=== PATIENT | female | born 1960 | race Caucasian/White ===

== ENCOUNTER 2018-12-01 09:34 | Inpatient (IN) ==
--- NOTE | 2018-12-01 09:50 | ED EKG INTERP ---
EKG Interpretation - EKG Time of EKG reading by physician:: 09:49 EKG Read and Signed by:: Yung Carter EKG Interpretation (*Must complete 3 of following elements*): Abnormal Rate: 126 Rhythm: sinus tach [place]: normal QRS: poor R wave progression, LVH GA Interval: shortened ST Wave: non-specific ST changes Prior EKG Comparison: unchanged from prior (04/01/18, except rate increased) Attestation - Physician/ HARRIETT Attestation Patient care was provided by Advanced Practice Provider:: Yes Advanced Practice Provider:: [place] Advanced Practice Provider documentation review:: The Mid-level provider documentation, treatment plan and medical decision making was reviewed by the physician who agrees with all treatment and medical decision making by the MLP. The physician spent face to face time with patient:: No Advanced Practice Provider documentation review:: Supervising physician onsite and consulted in the evaluation and care of this patient. The physician did not have a face to face encounter with the patient.
[2018-12-01] MEDS ORDERED: NS 1,000 ML IV ONE ×3 (09:55→13:42)
[2018-12-01] MEDS ORDERED: DUONEB (A & A) INH ONE (09:58)
--- NOTE | 2018-12-01 10:06 | PROVIDER DOCUMENTATION ---
HPI-Cardiac General - General Chief Complaint: Palpitations Stated Complaint: HIGH PULSE RATE,COPD,COUGHING Time Seen by Provider: 12/01/18 09:38 Source: patient Allergies/Adverse Reactions: Patient Allergies Allergy/AdvReac Type Severity Reaction Status Date / Time No Known Allergies Allergy Verified 12/01/18 10:21 Home Medications: Home Medication List Medication Instructions Recorded Confirmed Last Taken Type Atorvastatin Calcium 80 mg PO DAILY 04/22/16 12/01/18 03/31/18 History Lisinopril 5 mg PO DAILY 04/22/16 12/01/18 03/31/18 History Pantoprazole [Protonix] 40 mg PO DAILY 04/22/16 12/01/18 03/31/18 History Albuterol 2.5MG/Ipratrop 0.5MG 3 ml INH [id number] #120 neb 04/07/18 12/01/18 Unknown Rx [Duoneb (A & A)] Albuterol Sulfate [Proair Hfa] 1 inh INH Q4-6H PRN PRN 12/01/18 12/01/18 Unknown History Aspirin [Aspirin EC] 1 tab PO DAILY 12/01/18 12/01/18 Unknown History Fluticasone/Umeclidin/Vilanter 1 inh INH DAILY 12/01/18 12/01/18 Unknown History [Treledia Ellipta 100-62.5-25] Gabapentin 1 cap PO QHS 12/01/18 12/01/18 Unknown History Guaifenesin [Mucinex] 1 tab PO BID 12/01/18 12/01/18 Unknown History Metformin HCl [Metformin HCl ER] 1 tab PO DAILY 12/01/18 12/01/18 Unknown History Metoprolol Succinate E.r. [Toprol 1 tab PO DAILY 12/01/18 12/01/18 Unknown History Xl] Pentoxifylline E.r. [Trental] 1 tab PO TID 12/01/18 12/01/18 Unknown History Risedronate [Actonel] 1 tab PO DIRECTED 12/01/18 12/01/18 Unknown History - History of Present Illness-Cardiac Nature of Presenting Problem: Pt is 58 yo female, states heart has been racing on/off x 5 days, has been up to 170 on her O2 sat monitor at home, generalized weakness, increased dyspnea. Pt has h/o CABG and COPD, states she usually wears O2 at home only prn, but over the past week she has been on it constant. Also, reports coughing up blood tinged sputum as well. Denies chest pain. States she had appt with Dr. Marks this morning but didn't think she could make it. Onset/Duration: 5 days ago Timing: still present, intermittent, getting worse Palpitation Quality: fast/pounding heart beat History of arrythmia: reports: none Prior Chest Pain/Cardiac Workup: denies: angina Associated Symptoms: reports: fatigue, shortness of breath. denies: edema, fever/chills, nausea, vomiting Review of Systems - Adult - REVIEW OF SYSTEMS - ADULT Constitutional: denies: chills, fever Cardiovascular: reports: palpitations. denies: chest pain, edema Respiratory: reports: chronic cough, hemoptysis, shortness of breath. denies: wheezing Gastrointestinal: denies: nausea, vomiting Integumentary: denies: rash All Other Systems: Reviewed and Negative Past History - Adult - PAST MEDICAL HISTORY-ADULT Review of Records: reports: Old Records Reviewed, Nursing Assessment Review, Medications Reviewed, Social history reviewed & non-contributory. Major Childhood Illnesses: reports: denies history Cardiovascular: reports: HTN, [place] Respiratory: reports: COPD Other Conditions: reports: blindness (right eye) - PRIOR SURGERIES/PROCEDURES Surgical/Procedure History: reports: appendectomy, CABG, hysterectomy, tonsillectomy - IMMUNIZATION STATUS Childhood Immunizations: See Nurse Assessment Flu Vaccine: See Nurse Assessment - FAMILY HISTORY Family History: reviewed, not pertinent Physical Exam-General - PHYSICAL EXAM-ADULT Initial Vital Signs Reviewed: Yes (tachycardia) - CONSTITUTIONAL General Appearance: alert, no apparent distress, cachetic - EYES Eyes: PERRL/EOMI, pink conjunctivae - HEAD, EARS, NOSE, MOUTH & THROAT HENMT: normocephalic/atraumatic, moist mucous membranes - NECK Neck: supple - RESPIRATORY Respiratory: lungs clear, no pleuratic chest pain, respiratory distress (mild), decreased breath sounds (bilat) - CARDIOVASCULAR Cardiovascular: no edema, no gallop, no murmur, tachycardia - SKIN Integumentary: normal color, warm/dry - NEUROLOGIC Neurologic: grossly normal, no motor/sensory deficits - PSYCHIATRIC Psych/Mental Status: normal mood/affect, normal thought content, normal thought process, oriented x 3 Progress - PLAN OF CARE/RESULTS Progress/Plan/Lab Results: Vital Signs - 8 hr 12/01/18 09:45 12/01/18 09:53 12/01/18 10:01 Temperature 98.1 F Pulse Rate 135 H 126 H 122 H Respiratory Rate 20 33 H 35 H Blood Pressure 116/73 97/80 110/79 O2 Sat by Pulse Oximetry 94 L 97 12/01/18 10:10 12/01/18 10:20 12/01/18 10:31 Temperature Pulse Rate 114 H 112 H 114 H Respiratory Rate 37 H 30 H 40 H Blood Pressure 99/73 O2 Sat by Pulse Oximetry 90 L 96 96 12/01/18 10:55 Temperature Pulse Rate 105 H Respiratory Rate 20 Blood Pressure O2 Sat by Pulse Oximetry 94 L Laboratory Results - last 24 hr 12/01/18 12/01/18 12/01/18 10:10 10:10 10:10 WBC 19.27 H RBC 4.61 Hgb 14.0 Hct 41.2 MCV 89.4 MCH 30.4 MCHC 34.0 RDW Std Deviation 15.5 H Plt Count 489 H MPV 8.5 Immature Gran % (Auto) 0.3 Neut % (Auto) 89.8 H Lymph % (Auto) 4.6 L Lyman % (Auto) 5.1 Eos % (Auto) 0.0 Baso % (Auto) 0.2 Immature Gran # (Auto) 0.06 H Neut # (Auto) 17.31 H Lymph # (Auto) 0.88 L Lyman # (Auto) 0.99 H Eos # (Auto) 0.00 Baso # (Auto) 0.03 PT INR PTT (Actin FS) Specimen Type Sample Site pH pCO2 pO2 HCO3 Base Excess Oxyhemoglobin ABG O2 Sat (Calculated) ABG O2 Saturation ABG Carboxyhemoglobin ABG Methemoglobin Danielito Test A-a O2 Difference Total Hemoglobin Lactate Blood Gas Modality FiO2 % Sodium 132 L Potassium 4.1 Chloride 88 L Carbon Dioxide 25 Anion Gap 19 BUN 11 Creatinine 0.5 Estimated GFR/1.73 m2 > 60 BUN/Creatinine Ratio 22 Glucose 90 Calculated Osmolality 263 Calcium 9.6 Total Bilirubin 0.82 AST 58 H ALT 79 H Alkaline Phosphatase 184 H Creatine Kinase Troponin T Rju-[id number]-Zgcukshojtj Pept Total Protein 7.7 Albumin 3.2 L Globulin 4.5 Albumin/Globulin Ratio 0.7 TSH 1.18 Urine Source Urine Color Urine Turbidity Urine pH Ur Specific Upperco Urine Protein Ur Glucose (Stick) Ur Ketones (Stick) Urine Blood Urine Nitrite Urine Bilirubin Urobilinogen Dipstick Urine Leukocytes Urine WBC (Auto) Urine RBC (Auto) U Epithel Cells (Auto) Urine Bacteria (Auto) Urine Crystals Small Round Cells Urine Casts Urine Yeast-like Cells 12/01/18 12/01/18 12/01/18 10:10 10:10 10:10 WBC RBC Hgb Hct MCV MCH MCHC RDW Std Deviation Plt Count MPV Immature Gran % (Auto) Neut % (Auto) Lymph % (Auto) Lyman % (Auto) Eos % (Auto) Baso % (Auto) Immature Gran # (Auto) Neut # (Auto) Lymph # (Auto) Lyman # (Auto) Eos # (Auto) Baso # (Auto) PT 13.4 INR 0.95 PTT (Actin FS) 35.0 Specimen Type Sample Site pH pCO2 pO2 HCO3 Base Excess Oxyhemoglobin ABG O2 Sat (Calculated) ABG O2 Saturation ABG Carboxyhemoglobin ABG Methemoglobin Danielito Test A-a O2 Difference Total Hemoglobin Lactate Blood Gas Modality FiO2 % Sodium Potassium Chloride Carbon Dioxide Anion Gap BUN Creatinine Estimated GFR/1.73 m2 BUN/Creatinine Ratio Glucose Calculated Osmolality Calcium Total Bilirubin AST ALT Alkaline Phosphatase Creatine Kinase 26 Troponin T Zfl-F-Zxrljltlurd Pept 960 H Total Protein Albumin Globulin Albumin/Globulin Ratio TSH Urine Source Urine Color Urine Turbidity Urine pH Ur Specific Upperco Urine Protein Ur Glucose (Stick) Ur Ketones (Stick) Urine Blood Urine Nitrite Urine Bilirubin Urobilinogen Dipstick Urine Leukocytes Urine WBC (Auto) Urine RBC (Auto) U Epithel Cells (Auto) Urine Bacteria (Auto) Urine Crystals Small Round Cells Urine Casts Urine Yeast-like Cells 12/01/18 12/01/18 12/01/18 10:10 11:23 13:15 WBC RBC Hgb Hct MCV MCH MCHC RDW Std Deviation Plt Count MPV Immature Gran % (Auto) Neut % (Auto) Lymph % (Auto) Lyman % (Auto) Eos % (Auto) Baso % (Auto) Immature Gran # (Auto) Neut # (Auto) Lymph # (Auto) Lyman # (Auto) Eos # (Auto) Baso # (Auto) PT INR PTT (Actin FS) Specimen Type ARTERIAL Sample Site R RADIAL pH 7.45 pCO2 36 pO2 73 HCO3 25.7 Base Excess 1.3 Oxyhemoglobin 90.1 L ABG O2 Sat (Calculated) 17.3 ABG O2 Saturation 96.5 ABG Carboxyhemoglobin 5.60 H* ABG Methemoglobin 1.0 Danielito Test YES A-a O2 Difference 32.0 Total Hemoglobin 13.6 Lactate 1.10 Blood Gas Modality ROOM AIR FiO2 % 21.0 Sodium Potassium Chloride Carbon Dioxide Anion Gap BUN Creatinine Estimated GFR/1.73 m2 BUN/Creatinine Ratio Glucose Calculated Osmolality Calcium Total Bilirubin AST ALT Alkaline Phosphatase Creatine Kinase Troponin T < 0.010 Dup-D-Fhytojefjgc Pept Total Protein Albumin Globulin Albumin/Globulin Ratio TSH Urine Source CLEAN CATCH Urine Color ORANGE Urine Turbidity TURBID Urine pH 6.0 Ur Specific [place] 1.012 Urine Protein 30 A Ur Glucose (Stick) NEGATIVE Ur Ketones (Stick) 60 A Urine Blood SMALL A Urine Nitrite POSITIVE A Urine Bilirubin NEGATIVE Urobilinogen Dipstick NORMAL Urine Leukocytes LARGE A Urine WBC (Auto) TNTC A Urine RBC (Auto) <10 U Epithel Cells (Auto) <10 Urine Bacteria (Auto) 4+ Urine Crystals Not Reportable Small Round Cells Not Reportable Urine Casts Not Reportable Urine Yeast-like Cells NONE SEEN Orders Category Date Time Status Cardiac Monitoring DIRECTED Care 12/01/18 10:53 Active Cardiac Monitoring DIRECTED Care 12/01/18 10:54 Active IV Insertion ORDERED Care 12/01/18 10:53 Completed IV Insertion ORDERED Care 12/01/18 10:54 Completed Notify MD of + Sepsis Screen NOW Care 12/01/18 10:53 Active Notify MD of + Sepsis Screen NOW Care 12/01/18 10:54 Active Notify Physician As Ordered Care 12/01/18 10:54 Active CHEST-PORTABLE [RAD] Stat Exams 12/01/18 09:56 Completed CTA [CT ANGIOGRM PULMONARY ARTERIES] [CT] Stat Exams 12/01/18 09:56 Completed ABG [RESP] Routine Lab 12/01/18 11:23 Completed BLOOD CULTURE [BLDCUL] Stat Lab 12/01/18 11:45 Results CBC WITH ELECTRONIC DIFF [HEME] Stat Lab 12/01/18 10:10 Completed CK PROFILE [SP CHEM] Stat Lab 12/01/18 10:10 Completed COMPREHENSIVE METABOLIC PANEL [CHEM] Stat Lab 12/01/18 10:10 Completed LACTATE, PLASMA [CHEM] Lab 12/01/18 14:00 Uncollected LACTATE, PLASMA [CHEM] Lab 12/01/18 17:00 Uncollected LACTATE, PLASMA [CHEM] Q3H Lab 12/01/18 11:45 Received PRO B-NATRIURETIC PEPTIDE Stat Lab 12/01/18 10:10 Completed PROTIME WITH INR [COAG] Stat Lab 12/01/18 10:10 Completed PTT [COAG] Stat Lab 12/01/18 10:10 Completed TROPONIN T Stat Lab 12/01/18 10:10 Completed TSH Stat Lab 12/01/18 10:10 Completed URINALYSIS W/POSS RFLX CULT [URINALYSIS] Stat Lab 12/01/18 13:15 Completed URINE CULTURE [RM] Routine Lab 12/01/18 13:38 Received URINE MANUAL MICROSCOPIC [URINALYSIS] Stat Lab 12/01/18 13:15 Completed 0.9% Sodium Chloride Inj [Ns] 1,000 ml Med 12/01/18 10:56 Active IV 125 mls/hr 0.9% Sodium Chloride Inj [Ns] 1,000 ml Med 12/01/18 09:55 Discontinued IV 999 mls/hr 0.9% Sodium Chloride Inj [Ns] 1,000 ml Med 12/01/18 13:42 Active IV 999 mls/hr Albuterol 2.5MG/Ipratrop 0.5MG [Duoneb (A & A)] Med 12/01/18 09:58 Discontinued 3 ml INH NOW ONE Azithromycin 500 mg/Ns [Zithromax 500 mg/Ns] Med 12/01/18 12:15 Discontinued 500 mg in 250 ml IV NOW CefTRIAXONE [Rocephin] 1 gm Med 12/01/18 12:16 Discontinued 0.9% Sodium Chloride Inj [Ns] 50 ml IV NOW CefTRIAXONE [Rocephin] 1 gm Med 12/01/18 13:39 Active 0.9% Sodium Chloride Inj [Ns] 50 ml IV NOW Vancomycin 1 gm/Ns Med 12/01/18 13:36 Active 1 gm in 250 ml IV NOW Aerosol Treatments Routine Oth 12/01/18 09:58 Completed Aerosol Treatments Stat Oth 12/01/18 09:58 Completed Oxygen Device Stat Oth 12/01/18 10:53 Completed Oxygen Device Stat Oth 12/01/18 10:54 Completed EKG [EKG] Stat Ther 12/01/18 09:42 Draft Result Diagrams: 12/01/18 10:10 12/01/18 10:10 - XRAY 1 XRAY Interpretation: Patient: MARLIN GREENBERG Date: 12/01/18MR#: [id number] - CT/MRI 1 CT Results: Patient: MARLIN GREENBERG Date: 12/01/18MR#: [id number] - CONSULTS/PCP/HOSPITALIST Notification #1 *Consult/PCP/Hospitalist*: Hospitalist Time Discussed: 13:57 Reason/Comments: Bridgett for Dr. Redding Consult Disposition: Admit Departure - Departure Date of Disposition Decision: 12/01/18 Time of Disposition Decision: 13:57 DIAGNOSIS: PNA (pneumonia), UTI (urinary tract infection), Sepsis Disposition: ADMITTED INPATIENT 09 Certified Medical Emergency: Emergent Condition: Fair Referrals and Follow-Ups: Seng Garrido MD [Primary Care Provider] - - Critical Care Note This patient required my direct & personal management of CC.: Yes Attestation - Physician/ HARRIETT Attestation Patient care was provided by Advanced Practice Provider:: Yes Advanced Practice Provider documentation review:: The Mid-level provider documentation, treatment plan and medical decision making was reviewed by the physician who agrees with all treatment and medical decision making by the [facility]. The physician spent face to face time with patient:: Yes Advanced Practice Provider documentation review:: Supervising physician onsite and consulted in the evaluation and care of this patient. The physician did have a face to face encounter with the patient.
--- NOTE | 2018-12-01 10:34 | Diag Imaging Result Doc PS360 ---
EXAM: CHEST-PORTABLE INDICATION: palpitations; hemoptysis TECHNIQUE: One view COMPARISON: 04/04/2018 FINDINGS: The lungs are hyperinflated, stable. There is ill-defined opacity in the medial right upper lobe in the perihilar region. This suggests likely pneumonia. However, at least a follow-up chest radiograph is recommended after treatment to assure resolution. There is evidence of prior granulomatous disease, stable. There is no discrete pleural fluid collection or pneumothorax. There are stable CABG changes. Central vasculature is unremarkable. IMPRESSION: COPD changes and ill-defined opacity in the right upper lobe suprahilar region as described above. Electronically signed by Pepe Mitchell 12/01/2018 10:32 AM
[2018-12-01 10:41] LABS: BASO# 0.03 X1000 (0.0-0.2); BASO% 0.2 % (0.0-0.8); HEMATOCRIT 41.2 % (37.0-47.0); IMM GRAN# 0.06 X1000 (0.0-0.04); IMM GRAN% 0.3 % (0.0-0.5); LYMPH# 0.88 X1000 (1.2-3.4); LYMPH% 4.6 % (20.5-51.1); MCH 30.4 PG (27-31); MCV 89.4 FL (81-99); MONO# 0.99 X1000 (0.11-0.59); MONO% 5.1 % (1.7-9.3); MPV 8.5 FL (7.4-10.4); NEUT# 17.31 X1000 (1.4-6.5); NEUT% 89.8 % (42.2-75.2); PLT 489 X1000 (130-400); RBC 4.61 XMIL (4.2-5.4); RDW 15.5 % (11.5-14.5); WBC 19.27 X1000 (4.8-10.8)
--- NOTE | 2018-12-01 10:45 | EKG Report ---
Test Performed on : 12/01/2018 09:41:42 AM Test Reason : ELEVATED HEART RATE Blood Pressure : / mmHG Vent. Rate : 126 BPM Atrial Rate : 126 BPM P-R Int : 124 ms QRS Dur : 076 ms QT Int : 290 ms P-R-T Axes : 084 095 081 degrees QTc Int : 420 ms Sinus tachycardia. Right atrial enlargement Inferior infarct (cited on or before 09-OCT-2008) Anterolateral infarct (cited on or before 22-APR-2016) Abnormal ECG When compared with ECG of 01-APR-2018 06:21, Questionable change in initial forces of Inferior leads Nonspecific T wave abnormality has replaced inverted T waves in Lateral leads Unconfirmed Result
[2018-12-01 10:56] LABS: ESTIMATED GFR > 60
[2018-12-01 11:03] LABS: AGAP 19; ALB/GLOB RATIO 0.7; ALBUMIN 3.2 g/dL (3.5-5.0); ALKALINE PHOSPHATASE 184 U/L (32-104); BUN 11 mg/dL (8-22); CALCIUM 9.6 mg/dL (8.8-10.2); CHLORIDE 88 mmol/L (98-107); COSMO 263; CREATININE 0.5 mg/dL (0.5-0.9); GLUCOSE 90 mg/dL (70-104); GOT 58 U/L (10-30); GPT 79 U/L (10-36); POTASSIUM 4.1 mmol/L (3.5-5.1); SODIUM 132 mmol/L (136-145); TCO2 25 mmol/L (25-35); TOTAL BILIRUBIN 0.82 mg/dL (0.20-1.00); TOTAL PROTEIN 7.7 g/dL (6.3-8.3)
[2018-12-01 11:13] LABS: INR 0.95; PROTIME 13.4 Seconds (11.0-16.0)
[2018-12-01 11:44] LABS: ALLEN TEST YES; BE 1.3 mmoll (-3.0-3.0); BLOOD TYPE ARTERIAL; HCO3-(ACT) 25.7 mmoll (20.0-26.0); O2(CT) 17.3 mL/dL (15.0-23.0); O2HB 90.1 % (95.0-99.0); PCO2(98.6) 36 mmHg (35-45); PO2(98.6) 73 mmHg (60-100); SAMPLE BLOOD; SAO2 96.5 % (95.0-100.0); THB 13.6 g/dL (11.5-17.4); pH(98.6) 7.45 (7.35-7.45)
[2018-12-01 11:56] LABS: MODALITY ROOM AIR
[2018-12-01] MEDS ORDERED: ZITHROMAX 500 MG/NS 500 MG/250 ML IVPB IV ONE (12:15)
[2018-12-01] MEDS ORDERED: ROCEPHIN 1 GM in NS 50 ML IV ONE ×2 (12:16→13:39)
[2018-12-01 13:22] LABS: URINE SOURCE CLEAN CATCH
[2018-12-01 13:29] LABS: BILIRUBIN URINE NEGATIVE (NEGATIVE); BLOOD URINE SMALL (NEGATIVE); COLOR ORANGE; GLUCOSE URINE NEGATIVE (NEGATIVE); KETONE URINE 60 mg/dL (NEGATIVE); LEUKOCYTES URINE LARGE (NEGATIVE); NITRITE URINE POSITIVE (NEGATIVE); PROTEIN URINE 30 mg/dL (NEGATIVE); SP GRAVITY URINE 1.012; TURBIDITY URINE TURBID (CLEAR); UROBILINOGEN URINE NORMAL (NORMAL)
--- NOTE | 2018-12-01 13:33 | Diag Imaging Result Doc PS360 ---
EXAM: CT ANGIOGRM PULMONARY ARTERIES 12/01/2018 HISTORY: palpitations; hemoptysis TECHNIQUE: This exam was performed using automated exposure control, adjustment of mA or kV according to patient size, and/or use of iterative reconstruction technique. COMMENT: 3-D MIPS were performed. There are no filling defects in the pulmonary arteries. There is a cavitary lesion in the right upper lobe adjacent to the mediastinum seen best on image 47 which measures at least 2 cm in diameter. There is ill-defined consolidation in the right lower lobe some of which may contain areas of necrosis and cavitation. Neither of these abnormalities were present on 04/01/2018. There is some ill-defined pleural-based opacity throughout the right lower lobe posteriorly extending almost to the costophrenic sulcus. This was not present either on the previous study. The left lung base is fairly clear and unchanged in appearance. There is no evidence of acute disease in the visualized portion of the abdomen. There is no evidence of significant adenopathy. The regional skeleton appears to be intact. The aorta is not distended and there is no evidence of dissection. There is some apical pleural thickening bilaterally particularly on the right side which was present at the time the previous study. IMPRESSION: Right upper and lower lobe pneumonia with cavitation in the right upper lobe. The possibility of underlying neoplastic disease cannot be excluded and follow-up is recommended. Electronically signed by Joby Shipman 12/01/2018 1:31 PM
[2018-12-01] MEDS ORDERED: VANCOMYCIN 1 GM/NS 1 GM/250 ML IVPB IV ONE (13:36)
[2018-12-01 13:37] LABS: UR EPITHELIAL CELLS <10 /HPF (<10); URINE BACTERIA 4+ /HPF; URINE RBC <10 /HPF (<10); URINE WBC TNTC /HPF (<10)
[2018-12-01 13:42] LABS: URINE YEAST NONE SEEN
[2018-12-01] MEDS ORDERED: VENTOLIN HFA INH PRN (15:43)
[2018-12-01] MEDS ORDERED: TYLENOL PO PRN (15:43)
[2018-12-01] MEDS ORDERED: VANCOMYCIN IV PER PHARMACY MISC SCH (15:43)
[2018-12-01] MEDS ORDERED: DUONEB (A & A) INH PRN (15:43)
--- NOTE | 2018-12-01 16:29 | HISTORY AND PHYSICAL ---
ADDENDUM: The patient was seen and examined by me face to face. All the laboratory, vital signs and images were reviewed. As per the patient, she presented to the emergency department because of tachycardia and some hypoxemia at home. She has a past medical history of COPD and recurrent pneumonia and especially urinary tract infection. She is complaining of cough, and she has been having some blood in the phlegm. She is completely alert and oriented x3. No focal neurological deficits. She seems to be dehydrated. She is receiving right now IV fluids. CT scan showed right upper and lower lobe pneumonia with some cavitary lesions. The possibility of underlying neoblastic disease cannot be excluded. As per the patient, she has been losing weight. Her weight a year ago was around 105 pounds, and now is around 78 pounds. She stopped smoking a few months ago. I think in March of 2018. OBJECTIVE: Vital Signs: Temperature 98.1 degrees, pulse 98 respiratory rate on the monitor 30, blood pressure 109/63, and oxygen saturation 95% on room air. General: This patient looks cachectic. HEENT: Head normocephalic. No trauma. PERRLA. Neck: Supple. No JVD. Central trachea. Chest: Coarse breath sounds on the right side with some crepitus at the bases and upper lung generalized rhonchi. Abdomen: Soft, nontender, and nondistended. No hepatosplenomegaly. Extremities: No edema. No clubbing. No cyanosis. Neurological: The patient is alert and oriented x3. No focal deficits. Decreased muscle mass. LABORATORY DATA: Leukocytosis. Sodium level 132. Chloride 88. AST 58. ALT 79 and alkaline phosphatase 184, albumin 3.2, and urinalysis showed positive nitrate, elevated white blood cells, and both 4+ bacteria. This patient has been placed on broad-spectrum antibiotics. I will ask for an immunoglobulin level. ASSESSMENT AND PLAN: This patient will be on broad-spectrum antibiotics. I will ask for immunoglobulin level. Chest x-ray in the morning. Sputum culture as well as blood culture, and of course urine culture. Pulmonary Department and Infectious Disease Department will be consulted. cc: Mark Barraza MD
[2018-12-01] MEDS: DUONEB (A & A) INH SCH ×3 (16:57→22:29)
[2018-12-01] MEDS: HUMALOG SUBQ SCH ×2 (18:16→22:30)
[2018-12-01] MEDS: NS 1,000 ML IV SCH (22:29)
[2018-12-01] MEDS: TRENTAL PO SCH (22:30)
[2018-12-01] MEDS: MERREM 1 GM in NS 50 ML IV SCH (22:30)
[2018-12-02] MEDS: DUONEB (A & A) INH SCH ×6 (02:56→22:40)
[2018-12-02] MEDS: MERREM 1 GM in NS 50 ML IV SCH (05:08)
[2018-12-02] MEDS: HUMALOG SUBQ SCH ×4 (06:16→23:05)
--- NOTE | 2018-12-02 07:20 | EKG Report ---
Test Performed on : 12/02/2018 06:59:22 AM Test Reason : follow up Blood Pressure : / mmHG Vent. Rate : 092 BPM Atrial Rate : 092 BPM P-R Int : 116 ms QRS Dur : 080 ms QT Int : 336 ms P-R-T Axes : 081 080 079 degrees QTc Int : 415 ms Normal sinus rhythm. Possible Inferior infarct (cited on or before 09-OCT-2008) Cannot rule out Anterior infarct (cited on or before 22-APR-2016) Abnormal ECG When compared with ECG of 01-DEC-2018 09:41, (Unconfirmed) Questionable change in initial forces of Lateral leads Inverted T waves have replaced nonspecific T wave abnormality in Anterior leads Unconfirmed Result
[2018-12-02 07:32] LABS: BASO# 0.02 X1000 (0.0-0.2); BASO% 0.1 % (0.0-0.8); EOS# 0.04 X1000 (0.0-0.7); EOS% 0.2 % (0.0-10.0); HEMATOCRIT 35.4 % (37.0-47.0); HEMOGLOBIN 11.9 g/dL (12.0-16.0); IMM GRAN# 0.06 X1000 (0.0-0.04); IMM GRAN% 0.4 % (0.0-0.5); LYMPH% 4.2 % (20.5-51.1); MCH 30.3 PG (27-31); MCHC 33.6 g/dL (33-37); MCV 90.1 FL (81-99); MONO# 0.72 X1000 (0.11-0.59); MONO% 4.3 % (1.7-9.3); MPV 8.4 FL (7.4-10.4); NEUT% 90.8 % (42.2-75.2); PLT 461 X1000 (130-400); RBC 3.93 XMIL (4.2-5.4); RDW 15.4 % (11.5-14.5); WBC 16.64 X1000 (4.8-10.8)
--- NOTE | 2018-12-02 07:44 | Diag Imaging Result Doc PS360 ---
CHEST-PORTABLE - 12/02/2018 INDICATION: Pneumonia COMPARISON: 12/01/2018 FINDINGS: Stable severe COPD. Stable sternotomy wires. Stable dense infiltrate or mass in the right upper lobe. No new infiltrates. IMPRESSION: No change from prior. Electronically signed by Benji Foreman 12/02/2018 7:41 AM
[2018-12-02 07:55] LABS: LYMPHS 5 % (21-51); MONO 5 % (1-9); SEGS 90 % (42-75)
[2018-12-02 07:56] LABS: AGAP 12; ALB/GLOB RATIO 0.8; ALBUMIN 2.7 g/dL (3.5-5.0); ALKALINE PHOSPHATASE 145 U/L (32-104); BUN 5 mg/dL (8-22); CALCIUM 8.2 mg/dL (8.8-10.2); CHLORIDE 95 mmol/L (98-107); COSMO 265; CREATININE 0.3 mg/dL (0.5-0.9); ESTIMATED GFR > 60; GLUCOSE 97 mg/dL (70-104); GOT 34 U/L (10-30); GPT 50 U/L (10-36); POTASSIUM 3.2 mmol/L (3.5-5.1); SODIUM 134 mmol/L (136-145); TCO2 27 mmol/L (25-35); TOTAL BILIRUBIN 0.46 mg/dL (0.20-1.00); TOTAL PROTEIN 6.1 g/dL (6.3-8.3)
--- NOTE | 2018-12-02 09:17 | HISTORY AND PHYSICAL ---
PRIMARY CARE PROVIDER: Seng Garrido MD LATHING SUPERVISOR: Nacho Marks MD CHIEF COMPLAINT: Elevated heart rate. HISTORY OF PRESENT ILLNESS: Ms. Rogers is a 58-year-old female who carries a past medical history of COPD on home O2 since March, nicotine dependence and quit smoking in March, hypertension, hyperlipidemia. She states that she has been in her normal state of health; however, this morning when she checked her O2 level, her oxygen meter read that her heart rate was in the 170s. She did not feel any palpitations. She did not feel any more short of breath; however, she does state when she gets up and moves around, she does become short of breath. She did complain of a cough with yellow sputum production, and sometimes it is pink tinged. She also complained of dysuria and urinary frequency. She denies any fever, chills, chest pain, nausea/vomiting, diarrhea, constipation. She reports 2 months ago she was around one person who had an upper respiratory infection; however, over the past several months, she has gone to see her primary care provider Dr. Garrido several times and was given antibiotics and steroids. Her main reason for coming into the ED today was because her heart rate had read high. Workup in the ED revealed a white count of 19. Chest x-ray showed COPD changes and ill-defined opacity in the right upper lobe. I did a pulmonary arteriogram that revealed a right upper and lower lobe pneumonia with cavitation in the right upper lobe, and the possibility of underlying neoplastic disease could not be excluded. She denies any difficulty swallowing. She is afebrile. She was initially tachycardic; however, after 1 L of fluid, her heart rate is in the low 100s. Her blood pressure is stable. Observing her in the room, she is not tachypneic; however, when she does move in the bed, her respirations jump up as if it were high. However, she is not tachypneic in the room. We will treat her pneumonia as well as urinary tract infection and place her on the floor and continue her home O2 and bronchodilators. PAST MEDICAL HISTORY: 1. COPD on home O2 since March. 2. Hypertension. 3. Diabetes mellitus, type 2, orally controlled. 4. Hyperlipidemia. 5. Coronary artery disease status post NC and CABG. PAST SURGICAL HISTORY: 1. Right eye prosthesis. 2. CABG. 3. Cholecystitis. 4. Hysterectomy. 5. Tonsillectomy. SOCIAL HISTORY: She is . She quit smoking back in March. No alcohol or illicit drug use. FAMILY HISTORY: Noncontributory. ALLERGIES: No known drug allergies. HOME MEDICATIONS: 1. DuoNeb 3 mL inhaled RT 4 times a day. 2. ProAir inhaler 1 each inhaled q.4-6 h. p.r.n. shortness of breath. 3. Aspirin 325 mg p.o. daily. 4. Atorvastatin calcium 80 mg p.o. daily. 5. Trilogy Ellipta 100/62.5/25, 1 each inhaled daily. 6. Gabapentin 1 capsule p.o. daily at bedtime. 7. Guaifenesin 1 tablet p.o. b.i.d. 8. Lisinopril 5 mg p.o. daily. 9. Metformin 500 mg p.o. daily. 10. Toprol-XL 50 mg p.o. daily. 11. Protonix 40 mg p.o. daily. 12. Trental 400 mg tablets p.o. t.i.d. 13. Actonel 35 mg tablet p.o. as directed. PHYSICAL EXAMINATION: VITAL SIGNS: Temperature is 98.1 degrees, heart rate 105, respirations 20, blood pressure 99/73, O2 is 94% on room air. GENERAL: Ms. Rogers is a pleasant 58-year-old female, who is lying on the stretcher in no acute distress. HEENT: She does have a prosthesis in her right eye. Atraumatic, normocephalic. PERRL on the left. Mucous membranes are dry. CARDIOVASCULAR: S1, S2 appreciated. No murmurs, gallops, or rubs noted. RESPIRATORY: Lung sounds diminished throughout all lung cotter. No rales, rhonchi, or wheezes noted. GASTROINTESTINAL: Flat, nontender, nondistended, soft. Positive bowel sounds 4 quadrants. EXTREMITIES: No edema, clubbing, or cyanosis. NEUROLOGIC: Patient is awake, alert, and oriented. Follows commands. No focal deficits noted. DIAGNOSTIC DATA: Pulmonary arteriogram: Right upper and lower lobe pneumonia with cavitation in the right upper lobe. The possibility of underlying neoplastic disease could not be excluded. Initial EKG showed sinus tachycardia. LABORATORY DATA: White count 19, hemoglobin 14, hematocrit 41, platelet count is 489,000. ABG: A pH 7.45, pCO2 of 36, PO2 of 73, bicarbonate 25.7, base excess 1.3, oxyhemoglobin was 98.1, O2 saturation was 96%, carboxyhemoglobin 5.60 on room air. Sodium 132, potassium 4.1, BUN 11, creatinine 0.5, blood glucose is 90, total bilirubin 0.82, AST 58, ALT 59, alkaline phosphatase is 184. Troponin less than 0.010. ProBNP was 960. Plasma lactate was 1.4. TSH was 1.18. Urinalysis positive for nitrates, large leukocytes, too numerous to count WBCs, 4+ bacteria. ASSESSMENT AND PLAN: 1. Right and left upper lobe pneumonia with a cavitary lesion to the right upper lobe. We will continue with IV antibiotics, aggressive pulmonary toilet, bronchodilators. 2. Urinary tract infection. Awaiting urine culture. We will continue with IV antibiotics. 3. Elevated liver function tests. We will check a hepatitis profile and a right upper quadrant ultrasound. We will hold her Lipitor. 4. Clinical dehydration. We will continue with gentle IV hydration. 5. Chronic obstructive pulmonary disease (COPD) without exacerbation. 6. Diabetes mellitus, type 2. We will continue with patterned blood sugars and sliding scale insulin. 7. Coronary artery disease status post myocardial infarction (NC) and coronary artery bypass grafting (CABG). No chest pain. 8. Hyperlipidemia. Again, we will hold her statin, given her elevated liver function tests. 9. Hypertension. We will continue her metoprolol and lisinopril. 10. Tachycardia upon admission. The patient is low 100s after IV fluids. We will continue to monitor and continue her Toprol. Further recommendation to follow physician evaluation, laboratory, and diagnostic data. Dictated by KEVIN Coyle for Mark Barraza MD cc: MD Seng Chapin MD Mamoun I. Najjar, MD [facility]Lyn
--- NOTE | 2018-12-02 09:22 | Diag Imaging Result Doc PS360 ---
US GB < RUQ (LIMITED) - 12/02/2018 INDICATION: elevated LFTs TECHNIQUE: COMPARISON: 04/23/2014 FINDINGS: The gallbladder is absent. The liver, pancreas, and right kidney are normal. Common bile duct measures 3 mm. Aorta, IVC, and main portal vein are patent. IMPRESSION: Negative exam. Electronically signed by Benji Foreman 12/02/2018 9:19 AM
[2018-12-02] MEDS: TOPROL XL PO SCH (10:23)
[2018-12-02] MEDS: PRINIVIL PO SCH (10:23)
[2018-12-02] MEDS: NS 1,000 ML IV SCH (10:23)
[2018-12-02] MEDS: TRENTAL PO SCH ×3 (10:23→18:39)
[2018-12-02] MEDS: PROTONIX PO SCH (10:23)
[2018-12-02] MEDS: NON-FORMULARY BULK MED INH SCH (10:26)
[2018-12-02] MEDS ORDERED: KLOR-CON PO ONE (10:34)
[2018-12-02] MEDS ORDERED: NS 500 ML IV ONE (12:30)
--- NOTE | 2018-12-02 13:12 | PROGRESS NOTE ---
DATE: 12/02/2018 CONSULTATIONS: 1. Dr. Marks with Pulmonology. 2. Dr. Alexandre with Infectious Disease. SUBJECTIVE: Feeling much better today. OBJECTIVE: Vital Signs: Temperature is 99.1 degrees, heart rate 86, respirations 20, blood pressure 113/77, O2 is 99% on 2 L nasal cannula. General: Ms. Rogers is a pleasant 58-year-old female, who is lying on the bed in no acute distress. HEENT: Atraumatic normocephalic. PERRLA. She does have a prosthesis to her right eye. Mucous membrane still appear to be dry. CV: S1, S2 appreciated. No murmurs, gallops, rubs noted. Respiratory exam: Clear throughout all lung cotter. No rales, rhonchi, or wheezes noted. GI: Soft, nontender, nondistended. Positive bowel sounds four quadrants. Extremities: No edema. No clubbing. No cyanosis. Neurologic: The patient is awake, alert, and oriented, follows commands. No focal deficits noted. LABORATORY DATA: White count has gone from 19 down to 16, H and H of 11 and 35, platelet count 461. Sodium 134, potassium 3.2, BUN 5, creatinine 0.3, blood glucose is 117. AST from 58 down to 34, ALT 79 down to 50, alkaline phosphatase 184 down to 145. IMAGING STUDIES: A chest x-ray shows stable severe COPD,, stable sternotomy wires, stable dense infiltrates or mass in the right upper lobe. No new infiltrates. Abdominal ultrasound to the right upper quadrant was negative. ASSESSMENT AND PLAN: 1. Right upper and lower lobe pneumonia with a cavitary lesion to the right upper lobe. We will consult Infectious Disease, as well as Pulmonology. Continue intravenous antibiotics, aggressive pulmonary toilet and bronchodilators. 2. Urinary tract infection showing gram-negative rods. Continue with intravenous antibiotics. 3. Continue clinical dehydration. Will give another bolus of her intravenous fluids. 4. Chronic obstructive pulmonary disease without exacerbation. Continue home oxygen, bronchodilators. 5. Diabetes mellitus type 2. Continue pattern blood sugars and sliding scale insulin. 6. Coronary artery disease status post myocardial infarction and coronary artery bypass graft. 7. Hyperlipidemia. We will hold her statin, get an elevated liver function test. However, they are trending down. 8. Hypertension. We will continue her metoprolol and lisinopril. 9. Tachycardia upon admission. She is now normal sinus rhythm. 10. Elevated liver function tests. Right upper quadrant ultrasound has was negative. Hepatitis profile has been sent off. We will continue with intravenous hydration. 11. Mild hypokalemia. We will treat this with 40 potassium oral and recheck. 12. Mild hyponatremia. We will continue with intravenous fluids. 13. Further recommendation to follow physician evaluation, laboratory data and diagnostic data. Dictated by KEVIN Coyle for Melvin Gonzalez MD Addendum: Patient seen and examined by myself. Agree with PHOTOGR[employer]HER [employer] note. It reflects my assessment and plan. Patient has been evaluated by Pulmonary and considering the location of cavitary lesion is very difficult to obtain a biopsy they are planning to continue with antibiotics and repeat imaging in few days. ID has been consulted for managing antibiotics. Will follow recommendations. cc: Melvin Gonzalez MD MTDD
--- NOTE | 2018-12-02 14:13 | INFECTIOUS DISEASE CONSULT REP ---
DATE: 12/02/2018 CONCLUSION: The patient has a right upper lobe cavitary pneumonia and a right lower lobe pneumonia. She also has a gram-negative carlos urinary tract infection. RECOMMENDATIONS: I agree with treating the patient with vancomycin. I have substituted Zosyn for meropenem and I have ordered a sputum culture. I am also going to check the patient's immunoglobulin levels. DISCUSSION: The patient has a long history of having COPD. She tells me that in the last week, it has gotten extremely worse. She is much more dyspneic. Her heart rate is increased. She also told me that in the past week, she has had dysuria and she was anorectic. In the past month, the patient has lost approximately 20 pounds. She has not had fever or shaking chills. Laboratory studies thus far [place] [address], hemoglobin 11.9, and platelet count of 461,000. Creatinine is 0.3, GFR is greater than 60. Chest x-ray shows severe COPD, a right upper lobe mass/infiltrate. CT scan of the chest shows a right upper lobe cavitary pneumonia and a right lower lobe pneumonia. The patient's urine culture is growing a gram-negative carlos. RETURN TO SERVICE INSPECTOR HISTORY: Patient is 2, para 2, AB 0. She has had a hysterectomy and tubal ligation. REVIEW OF SYSTEMS: Eyes and ears: The patient is blind in the right eye, but she can see well out of the left eye, and her hearing is good. Neck: No stiffness. Respiratory: See present illness. Genitourinary: See present illness. Gastrointestinal: The patient has had anorexia in the past week but she has not had nausea, vomiting, or diarrhea. Integument: No rashes. Bone, joints, muscles: No joint swelling or muscle aching. Endocrine: The patient has diabetes but not thyroid disease. PREVIOUS HOSPITALIZATIONS AND OPERATIONS: Patient has had labor and deliveries, a cholecystectomy, a salivary gland operation, admission for myocardial infarction, and coronary artery bypass grafting. MEDICAL DISEASES: Positive for diabetes mellitus, hypertension, myocardial infarction, and COPD, hyperlipidemia, and gastroesophageal reflux disease. INFECTIOUS DISEASE HISTORY: Positive for pneumonia and UTI. FAMILY HISTORY: Positive for diabetes mellitus, hypertension, cancer, myocardial infarction and stroke. SOCIAL HISTORY[place] . She has a bird, dog and a cat for pets. She stopped smoking in March 2008. She does not drink alcoholic beverages or abuse drugs. MEDICATIONS: Taken at home include the followin. Albuterol inhaler. 2. Atorvastatin. 3. Fluticasone. 4. Ellipta. 5. Gabapentin. 6. Lisinopril. 7. Metformin. 8. Metoprolol. 9. Protonix. 10. Trental. 11. Actonel. PHYSICAL EXAMINATION: Vital Signs: Temperature is 99.1 degrees, pulse 86, respirations 20, blood pressure is 113/77. The patient is 5 feet 4 inches tall and weighs 86 pounds. General: This is a chronically ill and malnourished-appearing, middle-aged female. She is in no acute distress. Head/eyes/ears/nose/throat: She can hear my spoken words and see near objects. There is no drainage from the nose or ears. Sinuses are not tender. Neck: No stiffness. Lungs: Clear to auscultation. Cardiovascular: Heart rate is regular. Abdomen: Soft and nontender. Extremities: There is no edema or erythema. Neurologic: The patient is awake. She can move her extremities. There is no tremor. Her sensation is intact to touch. Her memory as regarding her medical history is intact. Thank you for the consult. cc: Jorden Alexandre MD
[2018-12-02] MEDS: ZOSYN 2.25 GM in NS 50 ML IV SCH ×2 (16:48→23:04)
[2018-12-02] MEDS: ROBITUSSIN-DM PO PRN ×2 (16:49→23:04)
[2018-12-02] MEDS: VANCOMYCIN 1 GM/NS 1 GM/250 ML IVPB IV SCH (16:54)
[2018-12-02] MEDS ORDERED: NS 500 ML ONE (17:10)
--- NOTE | 2018-12-02 22:27 | CONSULTATION ---
DATE OF CONSULTATION: 12/02/2018 REQUESTING PROVIDER: KEVIN Coyle REASON FOR CONSULTATION: Cavitary lesion. HISTORY OF PRESENT ILLNESS: This is a 58-year-old female with medical history of COPD, coronary artery disease, hypertension, diabetes mellitus type 2, hyperlipidemia. She has been seen in our office for COPD. She presented to the ER yesterday morning with a high pulse rate up to 170s. Initial workup in the ER revealed right upper and lower lobe pneumonia with cavitation in the right upper lobe, urinary tract infection, elevated liver function tests and proBNP and clinical dehydration. She has been admitted to the medical floor for further evaluation and management. At the time of my examination, patient is lying in bed comfortably with her granddaughter at the bedside. She reports chronic mild cough with brownish phlegm recently, generalized weakness and worsening shortness of breath, poor appetite and unintentional weight loss. She has no fever, chills, urination discomfort or chest pain. PAST MEDICAL AND SURGICAL HISTORY: 1. COPD, severe on home oxygen as needed since March 2018; Trilogy and albuterol at home. 2. Coronary artery disease with previous myocardial infarction status post coronary artery bypass graft. 3. Hypertension. 4. Diabetes mellitus type 2, taking oral medication at home. 5. Hyperlipidemia. 6. Right eye prosthesis. 7. Cholecystectomy. 8. Appendectomy. 9. Hysterectomy. 10. Tonsillectomy. SOCIAL HISTORY: The patient is and lives at home with her . She has good family support. She has 1 dog, 1 cat and both at home as pets. She used to smoke 1 pack per day for about 35 years and quit in March 2018. She has no history of alcohol or illicit drug use. FAMILY HISTORY: Positive for heart disease, stroke, dementia, and cancer. ALLERGIES: No known drug allergies. REVIEW OF SYSTEMS: A 10-point review of systems was conducted, and the pertinent was listed within the HPI, otherwise noncontributory. PHYSICAL EXAMINATION: Vital Signs: Temperature 99.1 degrees, blood pressure 114/77, pulse 86, respiratory rate 20, oxygen saturation 99% on nasal cannula at 2 L. General: Appears chronically ill and older than stated age, malnourished, lying in bed in no acute distress. The patient's granddaughter is at the bedside. HEENT: Atraumatic. Trachea midline. Mucosa pink and dry. Respiratory: even and unlabored. Lung expansion equal bilaterally. Auscultation revealed diminished breathing sounds bilaterally and crackles at the anterior right lower lung zone. Cardiovascular: Tachycardia with regular rate and rhythm. Gastrointestinal: Bowel sounds present normoactive in all 4 quadrants. Soft and flat. Extremities: No pitting edema. No cyanosis. No clubbing. Varicose veins noted in bilateral lower extremities. Dorsalis pedis 1+ bilaterally. Neurologic: Alert and oriented x3. Speech fluent. Follows commands. IMAGING DATA: Chest x-ray reveals stable severe COPD, right upper lobe dense infiltrates or mass. LABORATORY DATA: White blood cells 16.64, hemoglobin 11.4, hematocrit 35.4, platelets 461,000. Sodium 134, potassium 3.2, chloride 95, carbon dioxide 27, BUN 5, creatinine 0.3, glucose 97, AST is 34, ALT 50, alkaline phosphatase 145. ASSESSMENT: This is a 58-year-old female with a medical history of chronic obstructive pulmonary disease, coronary artery disease, hypertension, diabetes mellitus type 2, hyperlipidemia. She has been admitted to the medical floor with right upper and lower lobe pneumonia with cavitation to the right upper lobe, urinary tract infection, elevated liver function tests and proBNP and clinical dehydration. 1. Acute on chronic hypoxemic respiratory failure, stable, currently on patient's baseline oxygen requirement. 2. Right upper and lower lobe pneumonia with cavitation in the right upper lobe. 3. Chronic obstructive pulmonary disease on home oxygen as needed. No exacerbation. 4. Elevated liver function tests and proBNP. Liver function tests improved today. 5. Dehydration. PLAN: 1. Continue supplemental oxygen as needed. 2. Continue antibiotic and bronchodilators. 3. Continue mild fluid resuscitation. 4. Follow up with CBC and BMP. 5. Follow up with hepatitis profile and immunoglobulin level. 6. Follow up with urine cultures, sputum culture and blood culture. 7. The cavitation is likely infection related. We will repeat CT after antibiotic therapy. I discussed our plan with the patient and her granddaughter. They show understanding, and all questions were answered. 8. Dr. Alexandre is on board. 9. Continue GI and DVT prophylaxis. 10. Additional recommendations pending hospital course. Thank you for the courtesy of this consult. Dictated by KEVIN Sanchez for Nacho Marks MD cc: KEVIN Sanchez MD [facility]
[2018-12-03] MEDS: ZOSYN 2.25 GM in NS 50 ML IV SCH ×4 (02:29→20:51)
[2018-12-03] MEDS: DUONEB (A & A) INH SCH ×6 (03:07→22:56)
[2018-12-03] MEDS: NS 1,000 ML IV SCH ×3 (04:15→20:51)
[2018-12-03] MEDS: ROBITUSSIN-DM PO PRN (04:19)
[2018-12-03] MEDS: HUMALOG SUBQ SCH ×4 (06:06→22:52)
[2018-12-03 07:16] LABS: BASO# 0.01 X1000 (0.0-0.2); BASO% 0.1 % (0.0-0.8); EOS# 0.05 X1000 (0.0-0.7); EOS% 0.4 % (0.0-10.0); HEMATOCRIT 32.3 % (37.0-47.0); HEMOGLOBIN 10.7 g/dL (12.0-16.0); IMM GRAN# 0.04 X1000 (0.0-0.04); IMM GRAN% 0.3 % (0.0-0.5); LYMPH# 0.69 X1000 (1.2-3.4); LYMPH% 4.9 % (20.5-51.1); MCHC 33.1 g/dL (33-37); MCV 90.5 FL (81-99); MONO# 0.66 X1000 (0.11-0.59); MONO% 4.6 % (1.7-9.3); MPV 8.5 FL (7.4-10.4); NEUT# 12.75 X1000 (1.4-6.5); NEUT% 89.7 % (42.2-75.2); PLT 468 X1000 (130-400); RBC 3.57 XMIL (4.2-5.4); RDW 15.5 % (11.5-14.5)
[2018-12-03 07:26] LABS: AGAP 11; BUN 2 mg/dL (8-22); CALCIUM 8.7 mg/dL (8.8-10.2); CHLORIDE 97 mmol/L (98-107); COSMO 268; CREATININE 0.3 mg/dL (0.5-0.9); ESTIMATED GFR > 60; GLUCOSE 89 mg/dL (70-104); POTASSIUM 2.9 mmol/L (3.5-5.1); SODIUM 136 mmol/L (136-145); TCO2 28 mmol/L (25-35)
[2018-12-03 07:38] LABS: BANDS 2 % (0-1); LYMPHS 8 % (21-51); MONO 4 % (1-9); SEGS 86 % (42-75)
[2018-12-03] MEDS ORDERED: MAGNESIUM SULFATE 2 GM/S.W.I. 2 GM/50 ML IVPB IV ONE (10:00)
[2018-12-03] MEDS: NON-FORMULARY BULK MED INH SCH ×2 (10:38→10:39)
[2018-12-03] MEDS: PROTONIX PO SCH (10:40)
[2018-12-03] MEDS: PRINIVIL PO SCH (10:40)
[2018-12-03] MEDS: TOPROL XL PO SCH (10:40)
[2018-12-03] MEDS: TRENTAL PO SCH ×3 (10:43→18:46)
--- NOTE | 2018-12-03 10:55 | PROGRESS NOTE ---
DATE: 12/03/2018 SUBJECTIVE: The patient has no new complaints. OBJECTIVE: Vital Signs: Temperature is 97.8 degrees, heart rate 74, respirations 20, blood pressure 108/58, O2 is 94% on 2 L nasal cannula. General: Ms. Rogers is sitting up in the bed, reading the paper with no new complaints. HEENT: Atraumatic, normocephalic. PERRL. Patient does have a prosthesis to her right eye. Mucous membranes do not appear as dry. CV: S1, S2 appreciated. No murmurs, gallops, or rubs noted. Respiratory: Lungs sound are clear. No rales, rhonchi, or wheezes. GI: Soft, nontender, nondistended. Positive bowel sounds in 4 quadrants. Extremities: No edema. No clubbing. No cyanosis. Neurologic: Again, she is sitting up in the bed, reading the newspaper. No focal deficits noted. Laboratory Data: White count 14, hemoglobin and hematocrit 10 and 32, platelet count 468,000. Sodium 136, potassium 2.9, BUN 2, creatinine 0.3, blood glucose is 109. IgG is 623, IgA is 395, IgM is 74. ASSESSMENT/PLAN: 1. Cavitary pneumonia in the right upper lobe with a right lower lobe pneumonia. Again, being followed by infectious disease and pulmonology. She will continue on the intravenous antibiotics with vancomycin and Zosyn. Aggressive pulmonary toilet. Patient needs to be out of the bed three times a day and walking the hallways at least twice daily. Continue bronchodilators. 2. Urinary tract infection showing Escherichia coli. 3. Mild dehydration. We will continue with intravenous fluids. Encourage oral intake. 4. Chronic obstructive pulmonary disease without exacerbation. Continue home oxygen and bronchodilators. 5. Diabetes mellitus type 2. Continue with pattern of blood sugars and sliding scale. 6. Coronary artery disease, status post myocardial infarction and coronary artery bypass graft. No chest pain. 7. Hyperlipidemia. Again, statin on hold secondary to elevated liver function tests. However, they were trending down. 8. Hypertension. Continue metoprolol and lisinopril. 9. Tachycardia upon admission, now resolved. 10. Elevated liver function tests. Still awaiting hepatitis panel. However, her liver functions were improving. 11. Mild hypokalemia. We will treat with oral potassium again today. We will give her a dose of magnesium as well. Recheck in the morning. 12. Mild hyponatremia, resolved. 13. Further recommendations to follow physician evaluation, laboratory data, and diagnostic data. Dictated by KEVIN Coyle for Melvin Gonzalez MD Addendum: Patient seen and examined by myself. Agree with KEVIN note. It reflects my assessment and plan. Patient is clinically looking better. Will continue with IV antibiotics and will do a CT scan of chest in few days to see if there is any improvement in cavitary lesions. cc: Melvin Gonzalez MD [facility]
[2018-12-03] MEDS ORDERED: KLOR-CON PO ONE (11:00)
[2018-12-03 11:08] LABS: HEPATITIS PROFILE ACUTE SEE COMMENTS
[2018-12-03] MEDS ORDERED: MERREM 1 GM in NS 50 ML IV SCH (15:00)
--- NOTE | 2018-12-03 15:42 | INFECTIOUS DISEASE PROGRESS NO ---
DATE: 12/03/2018 PRESENT ILLNESS: Ms. Rogers has right upper lobe cavitary pneumonia and a right lower lobe pneumonia. There is also an Escherichia coli urinary tract infection. MEDICATIONS: She is receiving vancomycin IV per pharmacy dosing and Zosyn 2.25 g IV every 6 hours. PHYSICAL EXAMINATION: Vital Signs: Temperature is 97.8 degrees, pulse rate 88, respiratory rate 20, blood pressure 116/65. O2 saturations 100% on 2 L nasal cannula. General: This is a cachectic, chronically ill-appearing, middle-aged female. She is lying in the bed currently in no acute distress. HEENT: Atraumatic, normocephalic. She has a right eye prosthesis. Her tongue is erythematous and "sore." Conjunctivae are pink. Neck: Supple. Trachea is midline. Respiratory: Lung sounds are diminished bilaterally. She does have a frequent cough with occasional sputum. Cardiovascular: Heart rate is regular. Abdomen: Soft, flat, and nontender. Bowel sounds are active. Neurologic: She is awake, alert, oriented, and able to walk around the room without assistance. LABORATORY AND X-RAY: Today her white count is 14.2, hemoglobin 10.7, platelet count 468,000. Creatinine is 0.3. Estimated GFR is greater than 60. Her IgA was 395. IgG 623. Her urine culture grew Escherichia coli. Sputum culture is pending with a Gram stain showing no bacteria thus far. Blood cultures have shown no growth after 48 hours. No imaging reports today. ASSESSMENT AND PLAN: Ms. Rogers is being treated for right-sided pneumonia with an upper cavitary lesion. She is receiving vancomycin and Zosyn which we will continue at this time. These medications will also cover her Escherichia coli urinary tract infection. Today, her immunoglobulin levels are a little low. However, they are not low enough to merit a transfusion of IVIG at this time. We will plan to see her as an outpatient after she is discharged, and will recheck her immunoglobulin levels in 6 to 8 weeks. Her white blood cell count is continuing to come down, so we will continue medications as ordered. These plans have been discussed with and recommended by Dr. Alexandre. COMORBIDITIES: For Ms. Rogers include severe COPD, diabetes mellitus, coronary artery disease, gastroesophageal reflux disease, and protein calorie malnutrition. Dictated by KEVIN House for Jorden Alexandre MD This chart was documented by, KEVIN House and accurately reflects the services performed, treatment plan and medical decisions as attested by the providers signature Jorden Alexandre MD. cc: Jorden Alexandre MD MTDD
[2018-12-03] MEDS: MYCOSTATIN SUSP PO SCH ×2 (18:20→20:51)
[2018-12-03] MEDS: VANCOMYCIN 1 GM/NS 1 GM/250 ML IVPB IV SCH (18:50)
[2018-12-04] MEDS: ROBITUSSIN-DM PO PRN ×2 (00:55→21:30)
[2018-12-04] MEDS: DUONEB (A & A) INH SCH ×6 (03:09→22:56)
[2018-12-04] MEDS: ZOSYN 2.25 GM in NS 50 ML IV SCH ×4 (04:26→21:27)
[2018-12-04] MEDS: HUMALOG SUBQ SCH ×3 (06:02→16:23)
[2018-12-04] MEDS: NS 1,000 ML IV SCH ×3 (06:07→18:48)
--- NOTE | 2018-12-04 07:33 | Diag Imaging Result Doc PS360 ---
EXAM: CHEST-PORTABLE INDICATION: follow up PNA TECHNIQUE: One view COMPARISON: 12/02/2018 FINDINGS: Severe COPD is again noted. Dense infiltrate and/or mass in the right upper lobe is essentially stable. There is slight increased density at the right lung base as compared to the previous study, which may represent a developing consolidation. No other new consolidation is identified. Cardiac silhouette is stable. IMPRESSION: Possible developing consolidation at the right lung base. Stable chest, otherwise. Electronically signed by Pepe Mitchell 12/04/2018 7:30 AM
[2018-12-04 08:11] LABS: AGAP 10; BUN 3 mg/dL (8-22); CALCIUM 8.3 mg/dL (8.8-10.2); CHLORIDE 98 mmol/L (98-107); COSMO 266; CREATININE 0.2 mg/dL (0.5-0.9); ESTIMATED GFR > 60; GLUCOSE 91 mg/dL (70-104); SODIUM 135 mmol/L (136-145); TCO2 27 mmol/L (25-35)
[2018-12-04 08:19] LABS: BASO# 0.01 X1000 (0.0-0.2); BASO% 0.1 % (0.0-0.8); EOS# 0.12 X1000 (0.0-0.7); EOS% 0.9 % (0.0-10.0); HEMATOCRIT 30.8 % (37.0-47.0); HEMOGLOBIN 10.2 g/dL (12.0-16.0); IMM GRAN# 0.03 X1000 (0.0-0.04); IMM GRAN% 0.2 % (0.0-0.5); LYMPH# 0.83 X1000 (1.2-3.4); LYMPH% 6.5 % (20.5-51.1); MCH 29.8 PG (27-31); MCHC 33.1 g/dL (33-37); MCV 90.1 FL (81-99); MONO# 0.81 X1000 (0.11-0.59); MONO% 6.3 % (1.7-9.3); MPV 8.8 FL (7.4-10.4); NEUT# 10.98 X1000 (1.4-6.5); PLT 498 X1000 (130-400); RBC 3.42 XMIL (4.2-5.4); RDW 15.6 % (11.5-14.5); WBC 12.78 X1000 (4.8-10.8)
[2018-12-04 08:50] LABS: LYMPHS 4 % (21-51); MONO 2 % (1-9); SEGS 94 % (42-75)
[2018-12-04] MEDS: NON-FORMULARY BULK MED INH SCH (10:01)
[2018-12-04] MEDS: PRINIVIL PO SCH (10:02)
[2018-12-04] MEDS: PROTONIX PO SCH (10:02)
[2018-12-04] MEDS: TRENTAL PO SCH ×4 (10:02→18:20)
[2018-12-04] MEDS: TOPROL XL PO SCH (10:03)
[2018-12-04] MEDS: MYCOSTATIN SUSP PO SCH ×4 (10:04→21:27)
--- NOTE | 2018-12-04 13:35 | PROGRESS NOTE ---
DATE: 12/04/2018 SUBJECTIVE: The patient reports feeling good. No complaints today. OBJECTIVE: Vital Signs: Temperature 98 degrees, heart rate 86, respiratory rate 22, blood pressure 102/56 and O2 saturation 93% on 2 L nasal cannula. General: This is a chronically ill- appearing malnourished 58-year-old female lying in bed in no acute distress. HEENT: Head is normocephalic and atraumatic. The patient has a prosthesis on the right eye. The mucous membranes are moist. Neck: No JVD noted. No carotid bruits. Cardiovascular: S1, S2 heard. No murmurs, gallops, or rubs. Regular rate and rhythm. Respiratory: Clear bilaterally to auscultation. No work of breathing or using accessory muscles. Abdomen: Soft, nontender to palpation. Nondistended. Bowel sounds present. No organomegaly. Extremities: No clubbing, cyanosis, or edema. Peripheral pulses present in both legs. Neurological: Patient is lying in bed. No focal deficits noted. Speech is coherent. LABORATORY DATA: White cell count 12.78, hemoglobin 10.2, hematocrit 30.8, and platelets 498,000. ASSESSMENT AND PLAN: 1. Cavitary pneumonia in the right upper lobe with right lower lobe pneumonia. Patient clinically is doing better. White cell count is getting back to normal. Dr. Alexandre from Infectious Disease and Dr. Marks from Pulmonary are following this patient. At this point, patient is on vancomycin and Zosyn. Also aggressive pulmonary toilet. As per Pulmonary's recommendations, what we are going to do considering that the area of the cavitary lesion is really difficult to get a biopsy is to repeat imaging. At this time, considering the size of the lesion I prefer to keep this patient over the weekend and repeat a CT scan on Saturday and see how she is doing. 2. Urinary tract infection secondary to Escherichia coli. Patient is on antibiotics as above. 3. COPD. Patient is not on any exacerbation. Patient receiving breathing treatments as needed only. 4. Diabetes mellitus type 2. We will continue with sliding scale insulin and Accu-Cheks before meals and also at bedtime. 5. Coronary artery disease with history of CABG. The patient is doing fine. No chest pain noted. We will continue home medications. 6. Hyperlipidemia. We are not continuing with statin considering the elevated liver function tests. 7. Hypertension. Blood pressure is under control. We will continue with lisinopril and metoprolol. 8. Mild hypokalemia is still present. We are going to provide 60 mEq of potassium IV and will check BMP tomorrow. 9. Further recommendations to follow according to the clinical situation of the patient. cc: Melvin Gonzalez MD
[2018-12-04] MEDS: POTASSIUM CHLORIDE 60 MEQ in NS 500 ML IV ONE ×5 (16:00→16:45)
--- NOTE | 2018-12-04 16:04 | INFECTIOUS DISEASE PROGRESS NO ---
DATE: 12/04/2018 PRESENT ILLNESS: Ms. Rogers has a right-sided pneumonia with a right upper lobe cavitary pneumonia, as well as an Escherichia coli urinary tract infection that is asymptomatic. There is also an oral candidiasis. MEDICATION: She is receiving IV vancomycin per pharmacy dosing and Zosyn 2.25 g IV every 6 hours. She has also been started on nystatin swish and swallow. PHYSICAL EXAMINATION: Vital Signs: Temperature is 98 degrees, pulse rate 86, respiratory rate 22, blood pressure 102/56, O2 saturation 97% on 2 L nasal cannula. General: This is a cachectic, chronically ill-appearing, middle-aged female. She is sitting up in the bed, currently in no acute distress. HEENT: Atraumatic, normocephalic. There is a right eye prosthesis. She does have less pain to her tongue today after the start of nystatin swish and swallow. Neck: Supple. Trachea is midline. Respiratory: She has diminished lung sounds bilaterally with a mild crackle to the right base. Cardiovascular: Heart rate is regular. Abdomen: Soft, flat, nontender. Bowel sounds are active. Neurologic: She is awake, alert, oriented, and able to walk around the room independently. LABORATORY AND X-RAY: Today her white count is 12.78, hemoglobin 10.2, platelet count 498,000, creatinine is 0.2. Estimated GFR is greater than 60. Her urine culture has grown an Escherichia coli. The sputum culture is pending, requiring more incubation. Blood cultures have shown no growth after 48 hours. Today her chest x-ray shows dense infiltrate and/or mass in the right upper lobe, which is stable, and a slight increase in density at the right lung base compared to the previous study with a developing consolidation. ASSESSMENT AND PLAN: Ms. Rogers is being treated for a right upper cavitary pneumonia and right lower lobe pneumonia. She is receiving Zosyn and intravenous vancomycin, which we will continue at this time. Although her urinary tract infection is asymptomatic, it will be covered. Today her tongue is feeling better, so we will continue the nystatin swish and swallow. Her leukocytosis continues to improve. For now, we will continue the plans as mentioned. I have spoken with Dr. Marks, and for now he wants to wait on the idea of a right upper lobe cavitary biopsy, so we will continue antibiotics for now. These plans have been discussed with and recommended by Dr. Alexandre. COMORBIDITIES: Comorbidities for Ms. Rogers include COPD, diabetes mellitus, coronary artery disease, gastroesophageal reflux disease, and protein calorie malnutrition. Dictated by KEVIN House for Jorden Alexandre MD This chart was documented by, KEVIN House and accurately reflects the services performed, treatment plan and medical decisions as attested by the providers signature Jorden Alexandre MD. cc: [facility]orden Alexandre MD [facility]
[2018-12-04] MEDS: VANCOMYCIN 1 GM/NS 1 GM/250 ML IVPB IV SCH (18:29)
[2018-12-04] MEDS ORDERED: VANCOMYCIN 1,500 MG in NS 250 ML IV ONE (20:00)
[2018-12-05] MEDS: DUONEB (A & A) INH SCH ×6 (02:57→23:34)
[2018-12-05] MEDS: ZOSYN 2.25 GM in NS 50 ML IV SCH ×4 (03:30→21:18)
[2018-12-05] MEDS: HUMALOG SUBQ SCH ×5 (04:04→21:22)
[2018-12-05 07:22] LABS: BASO# 0.02 X1000 (0.0-0.2); BASO% 0.2 % (0.0-0.8); EOS# 0.14 X1000 (0.0-0.7); EOS% 1.3 % (0.0-10.0); HEMATOCRIT 32.4 % (37.0-47.0); HEMOGLOBIN 10.7 g/dL (12.0-16.0); IMM GRAN# 0.03 X1000 (0.0-0.04); IMM GRAN% 0.3 % (0.0-0.5); LYMPH# 0.79 X1000 (1.2-3.4); LYMPH% 7.4 % (20.5-51.1); MCH 30.1 PG (27-31); MONO# 0.58 X1000 (0.11-0.59); MONO% 5.4 % (1.7-9.3); MPV 8.7 FL (7.4-10.4); NEUT# 9.15 X1000 (1.4-6.5); NEUT% 85.4 % (42.2-75.2); PLT 543 X1000 (130-400); RBC 3.56 XMIL (4.2-5.4); RDW 15.9 % (11.5-14.5); WBC 10.71 X1000 (4.8-10.8)
[2018-12-05 07:52] LABS: AGAP 9; BUN 3 mg/dL (8-22); CALCIUM 8.4 mg/dL (8.8-10.2); CHLORIDE 99 mmol/L (98-107); COSMO 271; CREATININE 0.3 mg/dL (0.5-0.9); ESTIMATED GFR > 60; GLUCOSE 85 mg/dL (70-104); POTASSIUM 3.7 mmol/L (3.5-5.1); SODIUM 138 mmol/L (136-145); TCO2 30 mmol/L (25-35)
[2018-12-05] MEDS: TOPROL XL PO SCH (08:59)
[2018-12-05] MEDS: NS 1,000 ML IV SCH ×3 (08:59→21:19)
[2018-12-05] MEDS: PRINIVIL PO SCH (08:59)
[2018-12-05] MEDS: TRENTAL PO SCH ×3 (09:00→17:18)
[2018-12-05] MEDS: PROTONIX PO SCH (09:00)
[2018-12-05] MEDS ORDERED: VANCOMYCIN 750 MG in NS 150 ML IV SCH (09:00)
[2018-12-05] MEDS: MYCOSTATIN SUSP PO SCH ×4 (09:00→21:18)
[2018-12-05] MEDS: ROBITUSSIN-DM PO PRN ×3 (09:06→18:57)
--- NOTE | 2018-12-05 11:23 | INFECTIOUS DISEASE PROGRESS NO ---
DATE: 12/05/2018 PRESENT ILLNESS: Ms. Rogers has a right lower lobe pneumonia and right upper cavitary pneumonia, as well as an asymptomatic Escherichia coli urinary tract. There is a gram- negative carlos that is growing in her sputum, and she does have an oral candidiasis. MEDICATIONS: Today is day 4 of treatment with vancomycin IV per pharmacy dosing and Zosyn 2.25 g IV every 6 hours. She is receiving nystatin swish and swallow for the oral candidiasis. PHYSICAL EXAMINATION: Vital Signs: Temperature is 98.5 degrees, pulse rate 86, respiratory rate 16, blood pressure 99/52, O2 saturation 93% on room air. General: This is a cachectic, chronically ill-appearing, middle-aged female. She is sitting up in the bed, currently in no acute distress. HEENT: She does have a right eye prosthesis. There is erythema to her tongue, but no white patches. She states her mouth is feeling better. Neck: Supple. Trachea is midline. Cardiovascular: Heart rate is regular. Respiratory: Lung sounds are diminished bilaterally. Abdomen: Soft, flat, and mildly tender on palpation. Bowel sounds are active. Neurologic: She is awake, alert and oriented, and able to walk around independently. LABORATORY AND X-RAY: Today her white count is 10.71, hemoglobin 10.7, platelet count 543,000. Creatinine is 0.3. Estimated GFR is greater than 60. Her urine culture has grown Escherichia coli, and the sputum has a gram-negative carlos on the preliminary report. EKG done yesterday shows a normal sinus rhythm. No imaging reports today. ASSESSMENT AND PLAN: Ms. Rogers is being treated for right upper lobe cavitary pneumonia and a right lower lobe pneumonia. She is receiving Zosyn and vancomycin, which we will continue through the weekend. Her oral candidiasis is improving, so we will continue nystatin swish and swallow as ordered. Today her white count is back to normal. The tentative plan is to have her stay over the weekend and possibly repeat the CT of her lungs next week. These plans have been discussed with and recommended by Dr. Alexandre. COMORBIDITIES: Comorbidities for Ms. Rogers includes COPD, diabetes mellitus, coronary artery disease, gastroesophageal reflux disease, and protein calorie malnutrition. Dictated by KEVIN House for Jorden Alexandre MD This chart was documented by, KEVIN House and accurately reflects the services performed, treatment plan and medical decisions as attested by the providers signature Jorden Alexandre MD. cc: Jorden Alexandre MD MTDD
--- NOTE | 2018-12-05 14:28 | PROGRESS NOTE ---
DATE: 12/05/2018 SUBJECTIVE: Patient reports feeling fine. Denies any fever or chills or cough. OBJECTIVE: Vital Signs: Temperature 98.5 degrees, heart rate 89, respiratory rate 18, blood pressure 99/52, O2 saturation 93% on room air. General Examination: This is a chronically ill appearing and malnourished, 58-year-old female lying in bed, in no acute distress. HEENT: Head is normocephalic, atraumatic. Neck: The patient has a prosthesis in the right eye. Mucous membranes moist. Neck: No JVD noted. No carotid bruits. No lymphadenopathy. No thyromegaly. Cardiovascular: S1, S2 heard. No murmurs, gallops, or rubs. Regular rate and rhythm. Respiratory: Clear bilaterally to auscultation. No work of breathing or using accessory muscles. Abdomen: Soft, nontender to palpation. Bowel sounds present. No organomegaly. Extremities: No clubbing, cyanosis, or edema. Peripheral pulses present in both legs. Neurological: Patient is alert and oriented x3. Moves 4 extremities. LABORATORY DATA: White cell count 10.71, hemoglobin 10.7, hematocrit 32.4, platelets 573,000, normal BMP. ASSESSMENT AND PLAN: 1. Cavitary pneumonia in the right upper lobe with right lower lobe pneumonia. Clinically, this patient is doing fine. Denies any shortness of breath, fever or chills. Temperature is fine and also white cell count finally is back to normal. At this time, we have talked with Dr. Marks from Pulmonary. Considering that ideally it is necessary to do a biopsy of this cavitary lesion, because we were not able to do that because of the location of that lesion, we have decided to continue with antibiotics over the weekend and repeat a CT of the chest on Saturday, and will go from there. Dr. Alexandre also aware of this. 2. Urinary tract infection secondary to Escherichia coli. Patient is on antibiotics as above. In this case, vancomycin and Zosyn. 3. COPD. Patient is not on any exacerbation. We will continue with DuoNeb as needed only. 4. Diabetes mellitus type 2. We will continue with sliding scale insulin and Accu-Cheks before meals and also at bedtime. 5. Coronary artery disease with history of CABG. The patient is doing okay, not complaining of any chest pain. 6. Hyperlipidemia. Considering her liver function tests, we decided not to continue with the statin. 7. Hypertension. Blood pressure is under control. We will continue with the current medications. 8. Mild hypokalemia, resolved. 9. Disposition: We will continue to monitor this patient closely. We will continue with antibiotics as mentioned above and on Saturday we will repeat a CT of the chest. We will go from there. cc: Melvin Gonzalez MD
[2018-12-05] MEDS: PROTONIX IV SCH (18:57)
[2018-12-05] MEDS: TORADOL IV SCH (18:57)
[2018-12-05] MEDS: NORCO-5 PO PRN (21:17)
[2018-12-05] MEDS: VANCOMYCIN 1 GM/NS 1 GM/250 ML IVPB IV SCH (21:18)
[2018-12-06] MEDS: TORADOL IV SCH ×4 (01:01→18:44)
[2018-12-06] MEDS: NORCO-5 PO PRN ×2 (01:01→21:51)
[2018-12-06] MEDS: DUONEB (A & A) INH SCH ×6 (03:11→22:44)
[2018-12-06] MEDS: ZOSYN 2.25 GM in NS 50 ML IV SCH ×4 (03:22→21:13)
[2018-12-06] MEDS: NS 1,000 ML IV SCH ×2 (03:22→12:30)
[2018-12-06] MEDS: HUMALOG SUBQ SCH ×4 (06:22→21:11)
[2018-12-06 06:47] LABS: BASO# 0.02 X1000 (0.0-0.2); BASO% 0.2 % (0.0-0.8); EOS# 0.14 X1000 (0.0-0.7); EOS% 1.5 % (0.0-10.0); HEMATOCRIT 31.1 % (37.0-47.0); HEMOGLOBIN 10.2 g/dL (12.0-16.0); IMM GRAN# 0.02 X1000 (0.0-0.04); IMM GRAN% 0.2 % (0.0-0.5); LYMPH# 0.86 X1000 (1.2-3.4); LYMPH% 8.9 % (20.5-51.1); MCH 30.4 PG (27-31); MCHC 32.8 g/dL (33-37); MCV 92.6 FL (81-99); MONO# 0.82 X1000 (0.11-0.59); MONO% 8.5 % (1.7-9.3); MPV 8.7 FL (7.4-10.4); NEUT# 7.76 X1000 (1.4-6.5); NEUT% 80.7 % (42.2-75.2); PLT 551 X1000 (130-400); RBC 3.36 XMIL (4.2-5.4); RDW 16.3 % (11.5-14.5); WBC 9.62 X1000 (4.8-10.8)
[2018-12-06 07:08] LABS: AGAP 3; BUN 3 mg/dL (8-22); CALCIUM 9.1 mg/dL (8.8-10.2); CHLORIDE 102 mmol/L (98-107); COSMO 276; CREATININE 0.4 mg/dL (0.5-0.9); ESTIMATED GFR > 60; GLUCOSE 98 mg/dL (70-104); POTASSIUM 4.2 mmol/L (3.5-5.1); SODIUM 140 mmol/L (136-145); TCO2 35 mmol/L (25-35)
[2018-12-06] MEDS: MYCOSTATIN SUSP PO SCH ×4 (09:16→21:13)
[2018-12-06] MEDS: PRINIVIL PO SCH (09:16)
[2018-12-06] MEDS: TOPROL XL PO SCH (09:16)
[2018-12-06] MEDS: TRENTAL PO SCH ×3 (09:16→18:45)
--- NOTE | 2018-12-06 09:33 | PROGRESS NOTE ---
DATE: 12/06/2018 SUBJECTIVE: This patient states that she is feeling better. She denies any fever or chills. No acute events overnight. OBJECTIVE: Vital Signs: Temperature 97.5 degrees, pulse 68, respiratory rate 16, blood pressure 116/67, oxygen saturation 98 on 2 L of nasal cannula. HEENT: Head normocephalic. No trauma. Right eye prosthesis. Neck: Supple. No JVD. Central trachea. Chest: Right crepitus at the level of the mid lung on the right side. Otherwise, clear to auscultation. Abdomen: Soft, nontender, nondistended. No hepatosplenomegaly. Extremities: No edema. No clubbing. No cyanosis. Decreased muscle mass. Neurological examination: The patient is alert and oriented x3. No focal deficits. LABORATORY: WBC 9.6, hemoglobin 10.2, hematocrit 31.1, platelets 551. Sodium 140, potassium 4.2, chloride 102, bicarbonate 35. BUN 3, creatinine 0.4, glucose 101, calcium 9.1. ASSESSMENT AND PLAN: 1. Cavitary pneumonia in the right upper and lower lobe pneumonia. This patient feels much better. She is not complaining of shortness of breath, fever or chills. Pulmonary Department is considering to do a biopsy of this cavitary lesion, but it looks like it is really hard to do because of the location. We have decided to continue with antibiotics over the weekend, and repeat a CT scan of the chest on Saturday. Infectious Disease Department aware of this. We have a positive culture that showed Pseudomonas sensitive to Zosyn. I will continue with same management. 2. Urinary tract infection secondary to Escherichia coli. Continue with antibiotics. 3. Chronic obstructive pulmonary disease not in exacerbation. Continue with breathing treatment as needed. 4. Type 2 diabetes. Continue with sliding scale insulin and pattern of blood sugar. 5. History of coronary artery disease status post coronary artery bypass graft. She has no complaint of chest pain. 6. Hyperlipidemia. Because of her elevated liver function tests, the treatment with statin has been stopped, probably can be restarted as an outpatient in the near future. 7. Hypertension, controlled. 8. Hypokalemia, resolved. cc: Mark Barraza MD
[2018-12-06] MEDS: VANCOMYCIN 1 GM/NS 1 GM/250 ML IVPB IV SCH ×2 (12:30→21:47)
--- NOTE | 2018-12-06 16:53 | PULMONOLOGY PROGRESS NOTE ---
DATE: 12/06/2018 SUBJECTIVE: The patient is awake, alert, and conversant. She reports her sputum production has diminished. OBJECTIVE: Vital Signs: The patient has been afebrile for the last 24 hours. BP 114/63, heart rate 86, respiratory rate 16, oxygen saturation 98% on room air. HEENT: Pupils are equal and reactive. Oropharynx is clear. Neck: Is supple. Chest: Reveals prolonged expiratory phase. Cardiac: S1, S2. Abdomen: Soft and without hepatosplenomegaly. Extremities: Without edema. LABORATORIES: Sputum culture reveals Pseudomonas aeruginosa, which is pansensitive to antibiotics tested. Urine culture reveals E coli. White blood count is 9.62, hemoglobin 10.2, platelet count 551,000. IMPRESSION: 58-year-old with chronic obstructive pulmonary disease, cavitary pneumonia with Pseudomonas identified on sputum cultures, mild immunoglobulin deficiency, hypoxemic respiratory failure, urinary tract infection. The patient is currently on Zosyn 2.25 g. I suspect that the routine dosing was decreased due to her size. With Pseudomonas, the dosing would be 4.5 g q.6 hours and I would consider increasing it to the 3.375 g dosing. Will leave this decision to Dr. Jorden Alexandre. RECOMMENDATIONS: 1. Continue current antibiotics. 2. Continue bronchial hygiene. 3. Anticipate followup CT scan Saturday or Saturday as documented by other practitioners. cc: Arley Mir MD
[2018-12-06] MEDS: SODIUM CHLORIDE 0.9% INJ SCH (18:44)
[2018-12-06] MEDS: PROTONIX IV SCH (18:44)
[2018-12-07] MEDS: TORADOL IV SCH ×4 (00:47→18:04)
[2018-12-07] MEDS: DUONEB (A & A) INH SCH ×6 (03:23→23:40)
[2018-12-07] MEDS: ZOSYN 2.25 GM in NS 50 ML IV SCH ×2 (03:26→09:45)
[2018-12-07] MEDS: HUMALOG SUBQ SCH ×4 (06:25→20:40)
[2018-12-07 06:26] LABS: BASO# 0.04 X1000 (0.0-0.2); BASO% 0.5 % (0.0-0.8); EOS# 0.18 X1000 (0.0-0.7); EOS% 2.3 % (0.0-10.0); HEMATOCRIT 31.1 % (37.0-47.0); HEMOGLOBIN 10.1 g/dL (12.0-16.0); IMM GRAN# 0.02 X1000 (0.0-0.04); IMM GRAN% 0.3 % (0.0-0.5); LYMPH# 0.82 X1000 (1.2-3.4); LYMPH% 10.6 % (20.5-51.1); MCH 29.7 PG (27-31); MCHC 32.5 g/dL (33-37); MCV 91.5 FL (81-99); MONO# 0.65 X1000 (0.11-0.59); MONO% 8.4 % (1.7-9.3); MPV 8.6 FL (7.4-10.4); NEUT# 6.04 X1000 (1.4-6.5); NEUT% 77.9 % (42.2-75.2); PLT 562 X1000 (130-400); RDW 16.2 % (11.5-14.5); WBC 7.75 X1000 (4.8-10.8)
[2018-12-07 06:54] LABS: AGAP 10; BUN 5 mg/dL (8-22); CALCIUM 8.6 mg/dL (8.8-10.2); CHLORIDE 102 mmol/L (98-107); COSMO 280; CREATININE 0.4 mg/dL (0.5-0.9); ESTIMATED GFR > 60; GLUCOSE 92 mg/dL (70-104); SODIUM 142 mmol/L (136-145); TCO2 30 mmol/L (25-35)
[2018-12-07] MEDS: TRENTAL PO SCH ×3 (09:45→18:04)
[2018-12-07] MEDS: MYCOSTATIN SUSP PO SCH ×4 (09:45→20:40)
[2018-12-07] MEDS: TOPROL XL PO SCH ×2 (09:45→09:48)
[2018-12-07] MEDS: PRINIVIL PO SCH ×2 (09:45→09:48)
[2018-12-07] MEDS: MAXIPIME 1 GM in NS 50 ML IV SCH ×2 (11:51→18:04)
--- NOTE | 2018-12-07 11:52 | PROGRESS NOTE ---
DATE: 12/07/2018 SUBJECTIVE: No acute events overnight. She denies any fever or chills. Tomorrow, hopefully we will get a CT scan of the chest with a with contrast, and she will be re-evaluated by Pulmonary Department. OBJECTIVE: Vital Signs: Temperature 98.1 degrees, pulse 90, respiratory rate 20, blood pressure 96/54, oxygen saturation 99% on 2 L of nasal cannula. HEENT: Head normocephalic. No trauma. Right eye prosthesis. Neck: Supple. No JVD. Central trachea. Chest: Right crepitus at the level of the mid and upper lung. Otherwise clear to auscultation. Abdomen: Soft, nontender, nondistended. No hepatosplenomegaly. Extremities: No edema. No clubbing. No cyanosis. Decreased muscle mass. Neurological: The patient is alert and oriented x3. No focal deficits. LABORATORY: WBC 7.7, hemoglobin 10.1, hematocrit 31.1, platelets 562,000. Sodium 142, potassium 4, chloride 102, bicarbonate 30, BUN 5, creatinine 0.4, glucose 96, calcium 8.6. ASSESSMENT AND PLAN: 1. Cavitary pneumonia in the right upper and lower lobes. This patient is feeling better. She has no complaint of shortness of breath, fever or chills. Pulmonary Department is considering to do a biopsy of this cavitary lesion, but it looks like it is really hard to do because of the location. We have decided to continue with antibiotics over the weekend and repeat a CT scan of the chest tomorrow. Infectious Disease Department aware of this. We have a positive culture that showed Pseudomonas that is sensitive to Zosyn. I already talked today with Infectious Disease Department about these results. 2. Urinary tract infection secondary to Escherichia coli. Continue with antibiotics. 3. Chronic obstructive pulmonary disease, not in exacerbation. Continue with breathing treatment as needed. 4. Type 2 diabetes. Continue sliding scale insulin and pattern of blood sugar. 5. History of coronary artery disease, status post coronary artery bypass graft. She is not complaining of chest pain at this moment. 6. Hyperlipidemia. Because of the elevated liver function tests, the treatment with the statin has been stopped, probably that will be restarted as an outpatient in the near future. 7. Hypertension, controlled. 8. Hypokalemia, resolved. cc: Mark Barraza MD
--- NOTE | 2018-12-07 13:04 | INFECTIOUS DISEASE PROGRESS NO ---
DATE: 12/07/2018 PRESENT ILLNESS: The patient has a Pseudomonas cavitary pneumonia and an Escherichia coli urinary tract infection. The latter is asymptomatic. The patient also has oral candidiasis. The patient, on her immunoglobulin levels, had an IgG level of 623. MEDICATIONS: Currently, the patient is on vancomycin and Zosyn. PHYSICAL EXAMINATION: Vital Signs: Temperature is 99 degrees, pulse 115, respirations 20, blood pressure is 94/70. General: This is a chronically ill and malnourished-appearing, middle-aged female. She is in no acute distress. Head, Eyes, Ears, Nose, and Throat: She can hear my spoken words and see near objects. She does not have any white coating of her tongue. Neck: No meningismus. Thorax: Increased AP diameter of the chest. Lungs: Clear to auscultation. Cardiovascular: Heart rate is regular. Abdomen: Soft and nontender. Neurologic: The patient is alert. She is able to ambulate. There is no tremor. LAB AND X-RAY: There is no new radiographic study for today. The patient's IgG level was 623. Vancomycin level was 19.1. Creatinine is 0.4. GFR is greater than 60. CBC shows a white count of 7750, hemoglobin 10.1, and platelet count 562,000. ASSESSMENT AND PLAN: The patient has a Pseudomonas cavitary pneumonia and a right lower lobe pneumonia also. I have discontinued vancomycin and Zosyn, and started the patient on cefepime 1 g intravenous every 8 hours. The patient's Escherichia coli urinary tract infection does not require antibiotic treatment because it is asymptomatic but the cefepime will also be treating the urinary tract infection. As regarding the immunoglobulin G level of 623, I think this is not clinically significant and does not merit therapy with IVIG. It is my understanding that they will be a radiographic procedure done tomorrow on the patient. Based on that, the decision will be made about biopsying the cavitary lesion. COMORBIDITIES: She has COPD, diabetes mellitus, gastroesophageal reflux disease, and malnutrition. cc: Jorden Alexandre MD
[2018-12-07] MEDS: NORCO-5 PO PRN (17:22)
[2018-12-07] MEDS: SODIUM CHLORIDE 0.9% INJ SCH (18:04)
[2018-12-07] MEDS: PROTONIX IV SCH (18:04)
--- NOTE | 2018-12-07 20:25 | PULMONOLOGY PROGRESS NOTE ---
DATE: 12/07/2018 SUBJECTIVE: The patient is awake, alert and conversant. She reports she feels better today. She is having no fevers. She has minimal sputum production. OBJECTIVE: Vital Signs: The patient is afebrile. Blood pressure 125/64, heart rate 85, respiratory rate 20. Oxygen saturation 96% on 2 L per nasal cannula. HEENT: Pupils are equal and reactive. Oropharynx is clear. Neck: Supple. Chest: Reveals prolonged expiratory phase without wheezing or rhonchi. Cardiac: S1, S2. Abdomen: Soft, without hepatosplenomegaly. Extremities: Without edema. LABORATORIES: White blood count 7.75, hemoglobin 10.1, platelet count 562,000. IMPRESSION: A 58-year-old with: 1. COPD. 2. Pseudomonas aeruginosa on sputum cultures. 3. Cavitary pneumonia. 4. Mild immunoglobulin deficiency. 5. Hypoxemic respiratory failure. 6. Urinary tract infection. RECOMMENDATIONS: 1. Agree with change in antibiotics as outlined by Dr. Alexandre. 2. Continue bronchial hygiene. 3. CT scan in followup tomorrow as ordered by Dr. Redding. 4. Would recommend a 2 to 3 week course of antipseudomonal agents (oral Levaquin and oxygen) with additional surveillance of the lung before proceeding with a biopsy. The patient is at high risk for pneumothorax given her underlying emphysema. cc: Arley Mir MD
[2018-12-08] MEDS: TORADOL IV SCH ×3 (00:35→13:03)
[2018-12-08] MEDS: MAXIPIME 1 GM in NS 50 ML IV SCH ×3 (02:44→17:59)
[2018-12-08] MEDS: DUONEB (A & A) INH SCH ×5 (03:34→20:25)
[2018-12-08] MEDS: HUMALOG SUBQ SCH ×4 (06:22→23:00)
[2018-12-08 07:28] LABS: AGAP 10; BUN 5 mg/dL (8-22); CALCIUM 9.2 mg/dL (8.8-10.2); CHLORIDE 97 mmol/L (98-107); COSMO 272; CREATININE 0.4 mg/dL (0.5-0.9); ESTIMATED GFR > 60; GLUCOSE 78 mg/dL (70-104); POTASSIUM 3.9 mmol/L (3.5-5.1); SODIUM 138 mmol/L (136-145); TCO2 31 mmol/L (25-35)
[2018-12-08] MEDS: NON-FORMULARY BULK MED INH SCH (08:10)
--- NOTE | 2018-12-08 09:10 | Diag Imaging Result Doc PS360 ---
EXAM: CT THORAX W/CONTRAST INDICATION: Cavitary pneumonia TECHNIQUE: This exam was performed using automated exposure control, adjustment of mA or kV according to patient size, and/or use of iterative reconstruction technique. COMPARISON: 12/01/2018 FINDINGS: Pulmonary emphysema is again noted. Dense consolidation in the right lower lobe with internal necrosis and cavitation is essentially stable as compared to the previous study. Likewise, the smaller cavitary consolidation in the right upper lobe adjacent to the mediastinum has not changed significantly. Pleural-based opacity indicating consolidation and/or atelectasis posteriorly in the right lower lobe extending from the cavitary consolidation to the costophrenic sulcus is again identified. There is an increase in groundglass opacity at the right lung base as compared to the previous study. There is very subtle atelectasis and/or infiltrate has developed in the posterior aspect of the right middle lobe. There has been development of a trace effusion on the left with minimal left basilar atelectasis. The mediastinum and paige are unchanged. Limited views of the upper abdomen are stable. No other new consolidations are appreciated. IMPRESSION: 1.Dense consolidation with internal necrosis and cavitation in the superior aspect of the right lower lobe as well as the medial right upper lobe are essentially stable. Cavitary pneumonia is most likely. As stated previously, an underlying neoplastic process cannot completely be excluded. Follow-up within 3 months after treatment is suggested. 2.Increase in milder consolidation at the right lung base and very subtle atelectasis and/or infiltrate in the right middle lobe that has developed. 3.Development of a trace left effusion. 4.Otherwise essentially stable as compared to the prior study. Electronically signed by Pepe Mitchell 12/08/2018 9:08 AM
[2018-12-08] MEDS: MYCOSTATIN SUSP PO SCH ×4 (09:35→23:20)
[2018-12-08] MEDS: TRENTAL PO SCH ×3 (09:36→18:00)
--- NOTE | 2018-12-08 10:02 | PROGRESS NOTE ---
DATE: 12/08/2018 SUBJECTIVE: No acute events overnight. She has no complaint of chest pain or shortness of breath at this moment. She just had a CT scan done of the chest. Pending Pulmonary recommendations for today. OBJECTIVE: Vital Signs: Temperature 98.1 degrees, pulse 85, respiratory rate 19, blood pressure 105/51, oxygen saturation 91% on 2 L of nasal cannula. HEENT: Head normocephalic. No trauma. Right eye prosthesis. Neck: Supple. No JVD. Central trachea. Chest: Right crepitus at the level of the mid and upper lung. Otherwise clear to auscultation. Abdomen: Soft, nontender, nondistended. No hepatosplenomegaly. Extremities: No edema. No clubbing. No cyanosis. Decreased muscle mass. Neurological: The patient is alert and oriented x3. No focal neurological deficits. LABORATORY: Sodium 138, potassium 3.9, chloride 97, bicarbonate 31, BUN 5, creatinine 0.4, glucose 78, calcium 9.2. ASSESSMENT AND PLAN: 1. Cavitary pneumonia in the right lower lobe as well as right upper lobe. Radiology Department also states that an underlying neoplastic process cannot be completely excluded. They recommend to follow up within 3 months after treatment with a new CT scan. 2. Increase in milder consolidation at the right lung base and very subtle atelectasis and/or infiltrate in the right middle lobe that has developed. Development of trace left effusion. Otherwise, stable chest compared with prior study. I will wait for Pulmonary Department recommendations. I will continue with antibiotics per Infectious Disease Department. 3. Urinary tract infection secondary to E. Coli. Continue with antibiotics, but she is asymptomatic. 4. Chronic obstructive pulmonary disease, not in exacerbation. Continue with breathing treatment as needed. 5. Type 2 diabetes. Continue sliding scale insulin and pattern of blood sugar. 6. History of coronary artery disease, status post CABG. She is not complaining of chest pain at this moment. 7. Hyperlipidemia. We will monitor for now. 8. Hypertension, controlled. 9. Hypokalemia. Stable. Resolved. cc: Mark Barraza MD
[2018-12-08] MEDS: PRINIVIL PO SCH (10:09)
[2018-12-08] MEDS: TOPROL XL PO SCH (10:09)
[2018-12-08] MEDS: PROTONIX IV SCH (17:59)
[2018-12-08] MEDS: SODIUM CHLORIDE 0.9% INJ SCH (17:59)
--- NOTE | 2018-12-08 18:13 | INFECTIOUS DISEASE PROGRESS NO ---
DATE: 12/08/2018 PRESENT ILLNESS: Ms. Rogers is being treated for a right-sided pneumonia which includes a cavitary pneumonia. She also has an asymptomatic Escherichia coli urinary tract infection. There is a Pseudomonas growing in her sputum and she also has an oral candidiasis. MEDICATIONS: Today is day 1 of cefepime 1 g IV every 8 hours. She is also receiving nystatin swish and swallow 4 times a day. PHYSICAL EXAMINATION: Vital Signs: Temperature is 98 degrees, pulse rate 108, respiratory rate 18, blood pressure 98/51, O2 saturation 94% on room air. General: This is a cachectic, chronically ill-appearing, middle-aged female. She is walking around the room currently in no acute distress. HEENT: Atraumatic, normocephalic. She does have a prosthetic eye on the right. Oral mucous membranes are erythematous, but there are no white patches, and she states that the pain to her tongue is gone. Conjunctivae are pink. Neck: Supple. Trachea is midline. Cardiovascular: Heart rate is regular. Respiratory: Lung sounds are diminished bilaterally. She is up walking around the room without shortness of breath and states that her cough has improved. Abdomen: Soft, flat, nontender. Bowel sounds are active. Neurologic: She is awake, alert, and oriented. Able to move around independently. DIAGNOSTIC STUDIES: Today her creatinine is 0.4, estimated GFR is greater than 60. No CBC available, but yesterday her white count was 7.75, hemoglobin 10.1, and platelet count 562,000. Her sputum has grown a Pseudomonas aeruginosa. Her urine culture has grown an Escherichia coli. Blood cultures have shown no growth after [address] of her chest done today shows dense consolidations with internal necrosis and cavitation to the right lower lobe and the medial right upper lobe. These are essentially stable. This could be a cavitary pneumonia versus an underlying neoplastic process. There was also milder consolidation at the right lung base that may be atelectasis versus infiltrate. ASSESSMENT AND PLAN: Ms. Rogers has a cavitary Pseudomonas pneumonia. Some areas of the pneumonia on that right side may have gotten worse on CT of her chest done today, while the cavitary areas are stable. She does report feeling better today, with less of a cough and using her oxygen less. Notes from Dr. Mir yesterday suggest the use of oral Levaquin as an outpatient with later CT follow-up due to her high risk for pneumothorax with a biopsy. We will try to get a hold of Dr. Mir to discuss possible discharge plans. For now, we will continue cefepime and nystatin as ordered. These plans have been discussed with and recommended by Dr. Alexandre. COMORBIDITIES: For Ms. Rogers include protein-calorie malnutrition, chronic obstructive pulmonary disease, diabetes mellitus and gastroesophageal reflux disease. Dictated by KEVIN House for Jorden Alexandre MD This chart was documented by, KEVIN House and accurately reflects the services performed, treatment plan and medical decisions as attested by the providers signature Jorden Alexandre MD. cc: Jorden Alexandre MD [facility]Lyn
[2018-12-08] MEDS: NORCO-5 PO PRN (23:18)
[2018-12-08] MEDS: ROBITUSSIN-DM PO PRN (23:19)
[2018-12-09] MEDS: DUONEB (A & A) INH SCH ×4 (00:01→11:15)
--- NOTE | 2018-12-09 01:05 | PULMONOLOGY PROGRESS NOTE ---
DATE: 12/08/2018 SUBJECTIVE: The patient is awake, alert, and conversant. She has minimal sputum production. She reports she feels markedly better than on the day of admission. OBJECTIVE: Vital Signs: The patient has been afebrile for the last 24 hours. Blood pressure 99/46, heart rate 54, respiratory rate 17, oxygen saturation 96% on 2 L per nasal cannula. HEENT: Pupils are equal and reactive. Oropharynx is clear. Neck: Is supple. Chest: Reveals prolonged expiratory phase with bilateral crackles. Cardiac exam: Distant heart sounds. Normal S1, normal S2. Abdomen: Soft and without hepatosplenomegaly. Extremities: Without edema. LABORATORIES: Sodium 138, potassium 3.9, chloride 97, bicarbonate 31, BUN 5, creatinine 0.4. CT scan of the thorax reveals areas of consolidation and cavitation in the right lower lobe and medial right upper lobe with minimal change. She has mild increase in consolidation right base with a trace left effusion. No new microbiology data. IMPRESSION: 1. A 58-year-old with chronic obstructive pulmonary disease. 2. Pseudomonal pneumonia with necrotizing features. 3. Mild immunoglobulin deficiency. 4. Hypoxemic respiratory failure. 5. Urinary tract infection. DISCUSSION: A 58-year-old with severe COPD as outlined above with a necrotizing pneumonia. A quinolone sensitive Pseudomonas has been identified. This should be treated more like a lung abscess than a pneumonia given the necrotizing features. I would recommend that she undergo 21 to 28 days of an antibiotic. In this case, a quinolone appears to be the best option. I believe it would be a higher risk for placement of a PICC line with IV antibiotics, especially since a oral agent is available. I have discussed this with the patient. She is aware that if she goes home, we expect ongoing and continued clinical improvement. If she develops fevers, increasing shortness of breath, or worsening of sputum production she would likely require readmission to the hospital. I would recommend delaying any attempts at biopsy of this area at this juncture. Because she has Pseudomonas, I suspect that if she had a pneumothorax she would be at risk for developing empyema if the necrotic area drained into the hemithorax. This would be a life- threatening event for a patient with severe COPD. RECOMMENDATIONS: 1. Continue treatment for pseudomonal pneumonia as per above. 2. Anticipate discharge from the hospital with prolonged course of an oral quinolone as outlined above. 3. Recommend followup CT scan in 3 to 4 weeks. The patient is routinely followed by Dr. Marks. She will follow up with Dr. Alexandre with anticipation of ongoing followup with Dr. Marks. If this could not be arranged, I can also see her as an outpatient. cc: Arley Mir MD
[2018-12-09] MEDS: MAXIPIME 1 GM in NS 50 ML IV SCH ×2 (02:22→12:50)
[2018-12-09] MEDS: ROBITUSSIN-DM PO PRN ×2 (03:38→09:03)
[2018-12-09 07:03] LABS: BASO# 0.04 X1000 (0.0-0.2); BASO% 0.6 % (0.0-0.8); EOS# 0.11 X1000 (0.0-0.7); EOS% 1.6 % (0.0-10.0); HEMATOCRIT 33.1 % (37.0-47.0); HEMOGLOBIN 10.8 g/dL (12.0-16.0); LYMPH% 17.3 % (20.5-51.1); MCH 29.6 PG (27-31); MCHC 32.6 g/dL (33-37); MCV 90.7 FL (81-99); MONO# 0.76 X1000 (0.11-0.59); MPV 8.5 FL (7.4-10.4); NEUT# 4.81 X1000 (1.4-6.5); NEUT% 69.5 % (42.2-75.2); PLT 604 X1000 (130-400); RBC 3.65 XMIL (4.2-5.4); RDW 16.2 % (11.5-14.5); WBC 6.92 X1000 (4.8-10.8)
[2018-12-09 07:10] LABS: LYMPHS 12 % (21-51); MONO 12 % (1-9); SEGS 76 % (42-75)
[2018-12-09 07:16] LABS: AGAP 11; BUN 5 mg/dL (8-22); CALCIUM 9.1 mg/dL (8.8-10.2); CHLORIDE 94 mmol/L (98-107); COSMO 266; CREATININE 0.4 mg/dL (0.5-0.9); ESTIMATED GFR > 60; GLUCOSE 81 mg/dL (70-104); POTASSIUM 3.5 mmol/L (3.5-5.1); SODIUM 135 mmol/L (136-145); TCO2 30 mmol/L (25-35)
[2018-12-09] MEDS: HUMALOG SUBQ SCH ×2 (07:27→12:51)
[2018-12-09] MEDS: TRENTAL PO SCH ×2 (09:01→12:51)
[2018-12-09] MEDS: TOPROL XL PO SCH (09:01)
[2018-12-09] MEDS: PRINIVIL PO SCH (09:01)
[2018-12-09] MEDS: MYCOSTATIN SUSP PO SCH ×2 (09:02→12:51)
[2018-12-09 11:27] VITALS: BP 96/75
--- NOTE | 2018-12-09 11:27 | INFECTIOUS DISEASE PROGRESS NO ---
DATE: 12/09/2018 SUBJECTIVE: The patient has a Pseudomonas cavitary pneumonia. The plan is for her to go home on Levaquin 500 mg daily for a total of 4 weeks. I will be repeating the patient's x-ray and/or CAT scan. I will have the patient come to my office in 2 weeks, and then again at 4 weeks. The patient will be taking Levaquin daily. cc: Jorden Alexandre MD MTDD
--- NOTE | 2018-12-09 11:30 | INFECTIOUS DISEASE PROGRESS NO ---
DATE: 12/09/2018 ADDENDUM: The patient had oral candidiasis while she was getting antibiotics in the hospital, and the plan is for her to continue with taking nystatin while she is taking the Levaquin. cc: Jroden Alexandre MD
--- NOTE | 2018-12-09 12:24 | DISCHARGE SUMMARY ---
ADMISSION DATE: 12/01/2018 DISCHARGE DATE: 12/09/2018 PRIMARY CARE PROVIDER: Dr. Seng Garrido. CONSULTATIONS: 1. Dr. Marks with pulmonology. 2. Dr. Jorden Alexandre with infectious disease. PERTINENT PROCEDURES: 1. Initial chest x-ray showed COPD changes and ill-defined opacity in the right upper lobe/suprahilar region as described. 2. Pulmonary arteriogram, right upper and lower lobe pneumonia with cavitation in the right lower lobe. Possibility of underlying neoplastic disease could not be excluded. Followup recommended. 3. Abdominal ultrasound to the right upper quadrant was negative. 4. Chest CT, dense consolidation with internal necrosis and cavitation in the superior aspect of the right lower lobe as well as the medial right upper lobe are essentially stable. Cavitary pneumonia is most likely. Underlying neoplastic process cannot be completely excluded. Followup within 3 months after treatment is suggested. Increase in mild consolidation in the right lung base, very subtle atelectasis and/or infiltrate in the right middle lobe has developed, development of trace left pleural effusion. DISCHARGE DIAGNOSES: 1. Severe chronic obstructive pulmonary disease with a necrotizing pneumonia, quinolone sensitive pseudomonas. She will go home on Levaquin 500 mg daily for a total of 4 weeks and they will repeat the patient's x-ray and/or CT scan at that time and will follow up with Dr. Jorden Alexandre in his office in 2 weeks and then again in 4. Pulmonology did recommend delaying any attempts at a biopsy at this juncture secondary to pseudomonas and that she is at high risk for a pneumothorax as well as developing an empyema. They felt that it would be a life- threatening event for a patient with severe chronic obstructive pulmonary disease. She is to follow up with Dr. Marks as well and if this cannot be arranged, Dr. Mir would be happy to follow up with her. 2. Urinary tract infection secondary to Escherichia coli. Again, patient has been on antibiotics. She is asymptomatic. 3. Chronic obstructive pulmonary disease, not in exacerbation. She will continue home regimen. 4. Type 2 diabetes. She will continue on a diabetic diet and home regimen. 5. History of coronary artery disease, status post coronary artery bypass graft. No chest pain. 6. Hyperlipidemia. Her statin was stopped secondary to elevated liver function. 7. Hypertension, controlled. 8. Hypokalemia, resolved. 9. Clinical dehydration, resolved. 10. Transaminitis on admission. HOSPITAL COURSE: Briefly, Ms. Rogers is a 58-year-old, female with severe COPD on home O2 and nicotine dependence who came to the ED because her oxygen meter read that her heart rate was in the 170s. Upon admission to the ED, she was found to have a necrotizing pneumonia that was quinolone sensitive pseudomonas. She was followed by infectious disease as well as pulmonology. She was also found to have clinical dehydration and elevated liver function tests. She was started on IV fluids as well as broad-spectrum antibiotics. Her statin was held. She has received over a week's worth of IV antibiotics with Dr. Alexandre. She will be discharged on p.o. Levaquin for 4 weeks. She will follow up with Dr. Alexandre in 2 weeks and then again in 4. She is also to follow up with Dr. Marks. If an appointment could not be arranged, Dr. Mir would be happy to follow up with her as well. Her previous CT scan recommends followup repeat CT scan in 3 months. She has had a stable clinical course and will be discharged back home today. VITAL SIGNS: Temperature is 98.5 degrees, heart rate 86, respirations 18, blood pressure 96/75, O2 is 97% on 2 L nasal cannula. DISCHARGE DIET: Diabetic. DISCHARGE MEDICATIONS: 1. Gabapentin 100 mg p.o. at bedtime. 2. Actonel 35 mg p.o. as directed. 3. Aspirin 325 mg p.o. daily. 4. Atorvastatin 80 mg p.o. daily. 5. Lisinopril 80 mg p.o. daily. 6. Lisinopril 5 mg p.o. daily. 7. Metformin ER 500 mg p.o. daily. 8. Mucinex 600 mg p.o. b.i.d. 9. ProAir inhaler 1 inch inhaled q.4-6 hours p.r.n. 10. Protonix 40 mg p.o. daily. 11. Toprol-XL 50 mg p.o. daily. 12. Trelegy 1 inch inhaled daily. 13. Trental 400 mg tablet p.o. t.i.d. 14. DuoNeb 3 mL inhaled RT 4 times a day. 15. Levaquin 500 mg p.o. daily. 16. [place] 5/325 one each p.o. q.4 hours p.r.n. FOLLOWUP: Ms. Rogers will follow up with Dr. Jorden Alexandre in 2 weeks and then again in 4, as well as follow up with her business process associate, Dr. Marks. She will need a repeat CT scan in 3 months per radiology's recommendation. This will continue to be followed by Dr. Alexandre as well as her business process associate. She can return to the ED or call 911 for any worsening of symptoms. Dictated by KEVIN Coyle for Mark Barraza MD cc: MD Jorden Chapin MD James E. Boyle, MD Mamoun I. Najjar, MD MTDD
== END 2018-12-09 14:58 | disposition home or self-care (01) | DRG 177 ==
LOC: ED 09:34 → SUATTDRO 14:25 → EDIPHOLD 14:25 → 3N 15:30
PROVIDERS: ATTEND Internal Medicine
CPT/HCPCS: 71010; 71045; 71260; 71275; 76705; 80048; 80053; 80074; 80202; 81001; 82550; 82784; 82805; 82948; 83605; 83735; 83880; 84443; 84484; 85025; 85610; 85730; 87040; 87070; 87077; 87088; 87186; 87205; 89220; 93005; 93010; 94640; 94761; 94799; 96361; 96365; 96367; 99285; A9270; C9113; J0456; J0692; J0696; J1815; J1885; J2185; J2543; J3370; J3475; J3480; J7030; J7040; J7050; Q9967; S0164; XXXXX

== ENCOUNTER 2019-12-11 14:57 | Observation (INO) ==
[2019-12-11] MEDS ORDERED: NS 500 ML IV ONE (15:25)
[2019-12-11] MEDS ORDERED: CORDARONE IV ONE (15:25)
--- NOTE | 2019-12-11 15:38 | EKG Report ---
Test Performed on : 12/11/2019 3:18:58 PM Test Reason : SOB Blood Pressure : / mmHG Vent. Rate : 141 BPM Atrial Rate : 141 BPM P-R Int : 098 ms QRS Dur : 062 ms QT Int : 284 ms P-R-T Axes : 085 102 088 degrees QTc Int : 434 ms Sinus tachycardia. with short HI Right atrial enlargement Anterolateral infarct (cited on or before 22-APR-2016) Abnormal ECG When compared with ECG of 09-NOV-2019 19:07, (Unconfirmed) No significant change was found Unconfirmed Result
[2019-12-11 15:42] LABS: BLOOD TYPE ARTERIAL; SAMPLE BLOOD
--- NOTE | 2019-12-11 15:44 | Diag Imaging Result Doc PS360 ---
EXAM: CHEST-1 VIEW 12/11/2019 HISTORY: [email or web address] TECHNIQUE: AP upright portable at 1535 COMMENT: There is severe COPD. There has been sternotomy. There is slightly increased interstitial opacity of the lung bases compared to the previous study of 11/09/2019. IMPRESSION: COPD. Mild interstitial pulmonary edema. Electronically signed by Joby Shipman 12/11/2019 3:42 PM
[2019-12-11 15:48] LABS: BASO# 0.03 X1000 (0.0-0.2); BASO% 0.2 % (0.0-0.8); EOS# 0.03 X1000 (0.0-0.7); EOS% 0.2 % (0.0-10.0); HEMATOCRIT 47.6 % (37.0-47.0); HEMOGLOBIN 15.2 g/dL (12.0-16.0); IMM GRAN# 0.04 X1000 (0.0-0.04); IMM GRAN% 0.2 % (0.0-0.5); LYMPH# 0.92 X1000 (1.2-3.4); LYMPH% 5.3 % (20.5-51.1); MCH 29.6 PG (27-31); MCHC 31.9 g/dL (33-37); MCV 92.8 FL (81-99); MONO# 1.07 X1000 (0.11-0.59); MONO% 6.1 % (1.7-9.3); MPV 8.9 FL (7.4-10.4); NEUT# 15.42 X1000 (1.4-6.5); PLT 317 X1000 (130-400); RBC 5.13 XMIL (4.2-5.4); WBC 17.51 X1000 (4.8-10.8)
[2019-12-11] MEDS ORDERED: NS 1,000 ML IV ONE (16:15)
[2019-12-11 16:24] LABS: AGAP 13; ALB/GLOB RATIO 1.1; ALBUMIN 4.1 g/dL (3.5-5.0); ALKALINE PHOSPHATASE 80 U/L (32-104); BUN 10 mg/dL (8-22); CHLORIDE 92 mmol/L (98-107); COSMO 272; CREATININE 0.6 mg/dL (0.5-0.9); ESTIMATED GFR > 60; GLUCOSE 144 mg/dL (70-104); GOT 26 U/L (10-30); GPT 22 U/L (10-36); MAGNESIUM 2.2 mg/dL (1.5-2.7); POTASSIUM 4.4 mmol/L (3.5-5.1); SODIUM 135 mmol/L (136-145); TCO2 30 mmol/L (25-35); TOTAL BILIRUBIN 0.79 mg/dL (0.20-1.00)
[2019-12-11 16:28] LABS: HCO3-(ACT) 26.8 mmoll (20.0-26.0); PCO2(98.6) 23 mmHg (35-45); PO2(98.6) 164 mmHg (60-100)
[2019-12-11 16:29] LABS: ALLEN TEST YES; MODALITY CANNULA; THB 15.3 g/dL (11.5-17.4)
[2019-12-11 16:36] LABS: pH(98.6) 7.67 (7.35-7.45)
[2019-12-11] MEDS ORDERED: ROCEPHIN 1 GM in NS 50 ML IV ONE (16:55)
--- NOTE | 2019-12-11 17:29 | PROVIDER DOCUMENTATION ---
This chart was entered by Ginger Mitchell Scribe, acting as scribe for Collin Iverson MD. HPI-Cardiac General - General Chief Complaint: Shortness of Breath Stated Complaint: sob Time Seen by Provider: 12/11/19 15:20 Source: RN/ Allergies/Adverse Reactions: Patient Allergies Allergy/AdvReac Type Severity Reaction Status Date / Time No Known Allergies Allergy Verified 12/11/19 15:24 Home Medications: Home Medication List Medication Instructions Recorded Confirmed Last Taken Type Atorvastatin Calcium 80 mg PO DAILY 04/22/16 12/11/19 12/11/19 History Lisinopril 5 mg PO DAILY 04/22/16 12/11/19 12/11/19 History Pantoprazole [Protonix] 40 mg PO DAILY 04/22/16 12/11/19 12/11/19 History Albuterol Sulfate [Proair Hfa] 1 inh INH Q4-6H PRN PRN 12/01/18 12/11/19 12/11/19 History Aspirin [Aspirin EC] 1 tab PO DAILY 12/01/18 12/11/19 12/11/19 History Fluticasone/Umeclidin/Vilanter 1 inh INH DAILY 12/01/18 12/11/19 12/11/19 His tory [Trelegy Ellipta 100-62.5-25] Gabapentin 1 cap PO QHS 12/01/18 12/11/19 12/11/19 History Guaifenesin [Mucinex] 1 tab PO BID 12/01/18 12/11/19 12/11/19 History Metformin HCl [Metformin HCl ER] 1 tab PO DAILY 12/01/18 12/11/19 12/11/19 History Metoprolol Succinate E.r. [Toprol 1 tab PO DAILY 12/01/18 12/11/19 12/11/19 History Xl] Pentoxifylline E.r. [Trental] 1 tab PO TID 12/01/18 12/11/19 12/11/19 History Risedronate [Actonel] 1 tab PO DIRECTED 12/01/18 12/11/19 12/11/19 History Hydrocodone/APAP 5 mg/325 mg 1 ea PO Q4H PRN PRN #20 tab 12/09/18 12/11/19 12/11/19 Rx [[place]-5] Levofloxacin [Levaquin] 500 mg PO DAILY #28 tab 12/09/18 12/11/19 12/11/19 Rx Azithromycin [Zithromax] 1 gm PO DIRECTED #1 packet 11/09/19 12/11/19 12/11/19 Rx Fluticasone/[place] 100/50 INH 1 puff INH RTBID #1 inhaler 11/09/19 12/11/19 12/11/19 Rx [Advair 100/50 Diskus] Prednisone 1 mg PO DAILY 12/11/19 12/11/19 12/11/19 History - History of Present Illness-Cardiac Nature of Presenting Problem: 59 yof c/o pt arrives via ems due to palpitations today. pt is followed by Dr. De La Cruz in [place] for cardiology, has hx of CAD w/stents. pt was afib enroute. pt is dyspnic in room. Severity in ED: moderate Onset/Duration: other (today) Timing: still present Context/Activities at Onset: reports: none Modifying Factors: improves with: nothing Palpitation Quality: irregular History of arrythmia: reports: A-Fib Prior Chest Pain/Cardiac Workup: reports: other (followed by dr. de la cruz at [place]. hx of cad w/stent.) Associated Symptoms: reports: denies symptoms Review of Systems - Adult - REVIEW OF SYSTEMS - ADULT Constitutional: reports: no symptoms reported. denies: fever, fatique, night sweats Eyes: reports: no symptoms reported Ears, Nose, Mouth & Throat: reports: no symptoms reported Cardiovascular: reports: see HPI, irregular heart rate (afib), palpitations. denies: chest pain, edema, syncope Respiratory: reports: see HPI, dyspnea on exertion. denies: cough, pleurisy Gastrointestinal: reports: no symptoms reported Genitourinary: reports: no symptoms reported Musculoskeletal: reports: no symptoms reported Integumentary: reports: no symptoms reported Neurological: reports: no symptoms reported Psychiatric: reports: no symptoms reported Endocrine: reports: no symptoms reported Hematologic/Lymphatic: reports: no symptoms reported Allergic/Immunologic: reports: no symptoms reported All Other Systems: Reviewed and Negative Past History - Adult - PAST MEDICAL HISTORY-ADULT Review of Records: reports: Nursing Assessment Review, Medications Reviewed, Social history reviewed & non-contributory. 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 negative: cachetic, lethargic, slow to respond - EYES Eyes: PERRL/EOMI, other (blindness rt eye). negative: subconjunctival hemorrhage, sunken eyes - HEAD, EARS, NOSE, MOUTH & THROAT HENMT: normocephalic/atraumatic, moist mucous membranes - NECK Neck: non-tender, full range of motion, supple, normal inspection - RESPIRATORY Respiratory: chest non-tender, lungs clear, normal breath sounds, no pleuratic chest pain, no respiratory distress, no accessory muscle use, other (dyspnic) - CARDIOVASCULAR Cardiovascular: normal peripheral pulses, no edema, no gallop, no JVD, no murmur , tachycardia. negative: regular rate, rhythm - GASTROINTESTINAL (ABDOMEN) Abdominal Exam: normal bowel sounds, non tender, soft - MUSCULOSKELETAL Back Exam: normal inspection Extremity: normal range of motion, non-tender, normal inspection - SKIN Integumentary: normal color, normal turgor, warm/dry - NEUROLOGIC Neurologic: grossly normal, no motor/sensory deficits - PSYCHIATRIC Psych/Mental Status: normal mood/affect, normal thought content, normal thought process, oriented x 3 Progress - PLAN OF CARE/RESULTS Progress/Plan/Lab Results: Vital Signs - 8 hr 12/11/19 15:00 Temperature 98.1 F Pulse Rate 139 H Respiratory Rate 29 H Blood Pressure 107/78 O2 Sat by Pulse Oximetry 100 Laboratory Results - last 24 hr 12/11/19 12/11/19 12/11/19 15:15 15:33 15:33 WBC RBC Hgb Hct MCV MCH MCHC RDW Std Deviation Plt Count MPV Immature Gran % (Auto) Neut % (Auto) Lymph % (Auto) Brown % (Auto) Eos % (Auto) Baso % (Auto) Immature Gran # (Auto) Neut # (Auto) Lymph # (Auto) Brown # (Auto) Eos # (Auto) Baso # (Auto) Specimen Type ARTERIAL Sample Site R RADIAL pH 7.67 H* pCO2 23 L pO2 164 H HCO3 26.8 H Base Excess 6.0 H Danielito Test YES Total Hemoglobin 15.3 Liter Flow 2.0 Blood Gas Modality CANNULA FiO2 % 28.0 Sodium 135 L Potassium 4.4 Chloride 92 L Carbon Dioxide 30 Anion Gap 13 BUN 10 Creatinine 0.6 Estimated GFR/1.73 m2 > 60 BUN/Creatinine Ratio 17 Glucose 144 H Calculated Osmolality 272 Calcium 10.0 Magnesium 2.2 Total Bilirubin 0.79 AST 26 ALT 22 Alkaline Phosphatase 80 Troponin T High Sens Juv-P-Pkhowtoxwtk Pept Total Protein 8.0 Albumin 4.1 Globulin 3.9 Albumin/Globulin Ratio 1.1 Plasma Lactate 2.4 H 12/11/19 12/11/19 12/11/19 15:33 15:33 15:33 WBC 17.51 H RBC 5.13 Hgb 15.2 Hct 47.6 H MCV 92.8 MCH 29.6 MCHC 31.9 L RDW Std Deviation 18.0 H Plt Count 317 MPV 8.9 Immature Gran % (Auto) 0.2 Neut % (Auto) 88.0 H Lymph % (Auto) 5.3 L Brown % (Auto) 6.1 Eos % (Auto) 0.2 Baso % (Auto) 0.2 Immature Gran # (Auto) 0.04 Neut # (Auto) 15.42 H Lymph # (Auto) 0.92 L Brown # (Auto) 1.07 H Eos # (Auto) 0.03 Baso # (Auto) 0.03 Specimen Type Sample Site pH pCO2 pO2 HCO3 Base Excess Danielito Test Total Hemoglobin Liter Flow Blood Gas Modality FiO2 % Sodium Potassium Chloride Carbon Dioxide Anion Gap BUN Creatinine Estimated GFR/1.73 m2 BUN/Creatinine Ratio Glucose Calculated Osmolality Calcium Magnesium Total Bilirubin AST ALT Alkaline Phosphatase Troponin T High Sens 15 Dhc-A-Hjcjioedkwb Pept 654 H Total Protein Albumin Globulin Albumin/Globulin Ratio Plasma Lactate Orders Category Date Time Status NEWS Score >or=5:Order NEWS Bundle S.O. NOW Care 12/11/19 15:24 Active Saline Loc NOW Care 12/11/19 15:25 Active CHEST-1 VIEW [RAD] Stat Exams 12/11/19 15:25 Completed ABG [RESP] Routine Lab 12/11/19 15:15 Completed BLOOD CULTURE [BLDCUL] Stat Lab 12/11/19 16:03 Results CBC WITH ELECTRONIC DIFF [HEME] Stat Lab 12/11/19 15:33 Completed COMPREHENSIVE METABOLIC PANEL [CHEM] Stat Lab 12/11/19 15:33 Completed LACTATE, PLASMA [CHEM] Lab 12/11/19 16:30 Uncollected LACTATE, PLASMA [CHEM] Lab 12/11/19 19:30 Uncollected LACTATE, PLASMA [CHEM] Stat Lab 12/11/19 15:33 Completed MAGNESIUM [CHEM] Stat Lab 12/11/19 15:33 Completed PRO B-NATRIURETIC PEPTIDE Stat Lab 12/11/19 15:33 Completed SPUTUM CULTURE WITH GRAM STAIN [RM] Stat Lab 12/11/19 16:54 Uncollected TROPONIN T HIGH SENSITIVITY Stat Lab 12/11/19 15:33 Completed URINALYSIS W/POSS RFLX CULT [URINALYSIS] Stat Lab 12/11/19 16:54 Uncollected 0.9% Sodium Chloride Inj [Ns] 1,000 ml Med 12/11/19 16:15 Discontinued IV 999 mls/hr 0.9% Sodium Chloride Inj [Ns] 500 ml Med 12/11/19 15:25 Discontinued IV 999 mls/hr Amiodarone [Cordarone] Med 12/11/19 15:25 Discontinued 150 mg IV NOW ONE CefTRIAXONE [Rocephin] 1 gm Med 12/11/19 16:55 Discontinued 0.9% Sodium Chloride Inj [Ns] 50 ml IV NOW EKG [EKG] Stat Ther 12/11/19 15:25 Draft Result Diagrams: 12/11/19 15:33 12/11/19 15:33 - REASSESSMENT Reassessment #1 Time Reassessed: 16:15 Status: improving (pt is feeling better, Dr. Iverson will order bolus for pt.) Reassessment #2 Status: improving (patient with tachycardia and pnemonea, spoke with hopsitalist KEVIN will accept pt pnemonea sepsis protocal) - EKG 1 Time of EKG reading by physician:: 15:18 EKG Read and Signed by:: Collin Iverson EKG Interpretation (*Must complete 3 of following elements*): Abnormal Rate: 141 (MIRNA ) Rhythm: ST w/PVCs and occ Junctional rhythm [place]: normal QRS: normal [place] Interval: shortened ST Wave: normal Comments: anterolateral infarct, age undetermined - XRAY 1 XRAY Study: Chest Impression: Abnormal, See EMR Report ( EXAM: CHEST-1 VIEW 12/11/2019 HISTORY: [email or web address] TECHNIQUE: AP upright portable at 1535 COMMENT: There is severe COPD. There has been sternotomy. There is slightly increased interstitial opacity of the lung bases compared to the previous study of 11/09/2019. IMPRESSION: COPD. Mild interstitial pulmonary edema. Electronically signed by Joby Shipman 12/11/2019 3:42 PM 12/11/19 1542 Interpreting Physician: Joby Shipman MD) Comparison with other Films: changes noted - CONSULTS/PCP/HOSPITALIST Notification #1 *Consult/PCP/Hospitalist*: Lisy Time Discussed: 17:12 Consult Disposition: Admit Departure - Departure Date of Disposition Decision: 12/11/19 Time of Disposition Decision: 17:24 DIAGNOSIS: COPD (chronic obstructive pulmonary disease), PNA (pneumonia), Arrhythmia Sepsis Qualifiers: Sepsis type: sepsis due to unspecified organism Sepsis acute organ dysfunction status: without acute organ dysfunction Qualified Code(s): A41.9 - Sepsis, unspecified organism Disposition: ADMITTED INPATIENT 09 Certified Medical Emergency: Emergent Condition: Stable Referrals and Follow-Ups: Seng Garrido MD [Primary Care Provider] - - Critical Care Note This patient required my direct & personal management of CC.: No Attestation - Physician/ HARRIETT Attestation Patient care was provided by Advanced Practice Provider:: No The physician spent face to face time with patient:: Yes Advanced Practice Provider documentation review:: Supervising physician onsite and consulted in the evaluation and care of this patient. The physician did have a face to face encounter with the patient. This chart was documented by the indicated scribe, (Ginger Mitchell Scribe) and accurately reflects the services I performed and decisions made by Kishor roque Bahador Mark, MD, as attested by the provider's signature.
[2019-12-11 17:52] LABS: URINE SOURCE CLEAN CATCH
[2019-12-11 17:56] LABS: BILIRUBIN URINE NEGATIVE (NEGATIVE); BLOOD URINE NEGATIVE (NEGATIVE); COLOR YELLOW; GLUCOSE URINE NEGATIVE (NEGATIVE); KETONE URINE NEGATIVE (NEGATIVE); LEUKOCYTES URINE NEGATIVE (NEGATIVE); NITRITE URINE NEGATIVE (NEGATIVE); PROTEIN URINE TRACE mg/dL (NEGATIVE); SP GRAVITY URINE 1.011; TURBIDITY URINE CLEAR (CLEAR); UROBILINOGEN URINE NORMAL (NORMAL)
[2019-12-11 17:58] LABS: UR EPITHELIAL CELLS <10 /HPF (<10); URINE BACTERIA NEGATIVE /HPF; URINE RBC <10 /HPF (<10); URINE WBC <10 /HPF (<10)
--- NOTE | 2019-12-11 18:58 | ED EKG INTERP ---
This chart was entered by Helen Brooks Scribe, acting as scribe for Nancy Starks MD. EKG Interpretation - EKG Time of EKG reading by physician:: 18:36 EKG Read and Signed by:: Nancy Starks EKG Interpretation (*Must complete 3 of following elements*): Abnormal (anterior infarct-age undetermined) Rate: 99 Rhythm: sinus with short pr [place]: normal QRS: normal [place] Interval: shortened ST Wave: normal Attestation - Physician/ HARRIETT Attestation Patient care was provided by Advanced Practice Provider:: No The physician spent face to face time with patient:: No Advanced Practice Provider documentation review:: Supervising physician onsite and consulted in the evaluation and care of this patient. The physician did not have a face to face encounter with the patient. This chart was documented by the indicated scribe, (Helen Brooks, Thom) and accurately reflects the services I performed and decisions made by vt, Nancy Starks MD, as attested by the provider's signature.
[2019-12-11] MEDS ORDERED: NS 1,000 ML IV SCH (20:30)
[2019-12-11] MEDS ORDERED: NORCO-5 PO PRN (20:40)
[2019-12-11] MEDS ORDERED: SOLU-MEDROL IV ONE (20:47)
[2019-12-11] MEDS: DUONEB (A & A) INH SCH ×2 (20:51→23:58)
[2019-12-11] MEDS: NEURONTIN PO SCH (21:51)
[2019-12-11] MEDS: MUCINEX PO SCH (21:51)
[2019-12-11] MEDS: LOVENOX SUBQ SCH (21:51)
[2019-12-11] MEDS: ZITHROMAX 500 MG/NS 500 MG/250 ML IVPB IV SCH (21:52)
--- NOTE | 2019-12-11 21:58 | Diag Imaging Result Doc PS360 ---
EXAM: CT ANGIOGRM PULMONARY ARTERIES HISTORY: difficulty breathing, left arm swollen TECHNIQUE: CT chest with intravenous contrast. Pulmonary arterial protocol with MIP images. COMPARISON: 05/28/2019 FINDINGS: Normal opacification of the pulmonary arteries and their branches. No aortic aneurysm or dissection. Right medial posterior pleural thickening similar to the prior exam with associated fibrosis. Severe emphysema. There is scarring in the right apex. No consolidation. No bronchiectasis. No cardiomegaly. No enlarged lymph nodes. There are small calcified subcarinal nodes and scattered granuloma. IMPRESSION: 1.No pulmonary emboli 2.Severe emphysema 3.There is evidence of a prior granulomatous infection 4.Right-sided pleural thickening and fibrosis This exam was performed using automated exposure control, adjustment of mA or kV according to patient size, and/or use of iterative reconstruction technique. Electronically signed by Herson Medina 12/11/2019 9:56 PM
[2019-12-12] MEDS: DUONEB (A & A) INH SCH ×5 (04:57→20:01)
[2019-12-12] MEDS ORDERED: HUMULIN R SUBQ SCH (07:00)
[2019-12-12 08:12] LABS: HEMATOCRIT 41.3 % (37.0-47.0); MCH 29.8 PG (27-31); MCHC 31.5 g/dL (33-37); MCV 94.7 FL (81-99); MPV 8.9 FL (7.4-10.4); RBC 4.36 XMIL (4.2-5.4); RDW 17.9 % (11.5-14.5); WBC 13.72 X1000 (4.8-10.8)
[2019-12-12 08:32] LABS: AGAP 10; BUN 12 mg/dL (8-22); CALCIUM 9.2 mg/dL (8.8-10.2); CHLORIDE 96 mmol/L (98-107); COSMO 277; CREATININE 0.6 mg/dL (0.5-0.9); ESTIMATED GFR > 60; GLUCOSE 156 mg/dL (70-104); POTASSIUM 4.4 mmol/L (3.5-5.1); SODIUM 137 mmol/L (136-145); TCO2 31 mmol/L (25-35)
[2019-12-12] MEDS: ASPIRIN EC PO SCH (09:14)
[2019-12-12] MEDS: TESSALON PO SCH ×3 (09:14→20:45)
[2019-12-12] MEDS: PRILOSEC PO SCH (09:15)
[2019-12-12] MEDS: TOPROL XL PO SCH (09:15)
[2019-12-12] MEDS: TRENTAL PO SCH ×3 (09:15→20:45)
[2019-12-12] MEDS: LIPITOR PO SCH (09:15)
[2019-12-12] MEDS: SOLU-MEDROL IV SCH ×2 (09:15→20:46)
[2019-12-12] MEDS: MUCINEX PO SCH ×2 (09:15→20:45)
[2019-12-12] MEDS: HUMULIN R SUBQ SCH ×3 (15:52→20:48)
--- NOTE | 2019-12-12 19:25 | PROGRESS NOTE ---
DATE: 12/12/2019 SUBJECTIVE: The patient is resting comfortably. She states that she feels a little bit better today. She does have a productive cough. OBJECTIVE: Vital signs: Temperature 97.8 degrees, blood pressure 118/60, heart rate 83, respirations 18, O2 saturation 100% on 4 L nasal cannula.General: This is a chronically ill- appearing elderly female, lying in bed in no acute distress. Heart: S1, S2 normal. Lungs: Diminished air entry bilaterally. Abdomen: Positive bowel sounds. Soft, nontender, nondistended. Extremities: No edema, no cyanosis. Neurologic: The patient is alert and oriented x3. LABORATORY DATA: White blood cell count 13, hemoglobin 13, hematocrit 41, platelets 273,000. Sodium 137, potassium 4.4, BUN 12, creatinine 0.6, glucose 156. ASSESSMENT AND PLAN: 1. Acute on chronic hypoxemic respiratory failure. Likely secondary to chronic obstructive pulmonary disease exacerbation as a result of the patient's severe emphysema. 2. Acute chronic obstructive pulmonary disease exacerbation. Continue on intravenous steroids, bronchodilator therapy and antibiotics. 3. CAD with h/o PA s/p CABG 2005. Aware. 4. Hypertension. Continue on Toprol-XL. 5. Gastroesophageal reflux disease. Continue on Prilosec. 6. Tobacco dependence. The patient has been counseled about smoking cessation. 7. Deep venous thrombosis prophylaxis. Continue on Lovenox. cc: Mylene Weathers MD MTDD
[2019-12-12] MEDS: ROCEPHIN 1 GM in NS 50 ML IV SCH (20:41)
[2019-12-12] MEDS: LOVENOX SUBQ SCH (20:47)
[2019-12-12] MEDS: NEURONTIN PO SCH (20:51)
[2019-12-12] MEDS: ZITHROMAX 500 MG/NS 500 MG/250 ML IVPB IV SCH (22:03)
--- NOTE | 2019-12-12 22:48 | HISTORY AND PHYSICAL ---
PRIMARY CARE PROVIDER: Seng Garrido MD. CHIEF COMPLAINT: Shortness of breath of 1 day duration. HISTORY OF PRESENT ILLNESS: Patient is a 59-year-old female with history of COPD, CAD, hypertension, diabetes, who presents with shortness of breath of 1 day duration. Patient states that she woke up suddenly this morning feeling short of breath. She describes she had a cough productive of yellowish-green sputum which is unlike her baseline sputum which is normally whitish. She also describes an increase in quantity of sputum production as well. She describes wheezing but denies any fever. Denies any palpitation. Denies any chest pain. Denies any nausea or vomiting. Patient has paroxysmal nocturnal dyspnea which has not worsened and also at baseline 2-pillow orthopnea. Also at her baseline she uses 2 to 2.5 L oxygen. However, since she became short of breath she has required more oxygen. In the ER, she was requiring 4 L of oxygen. Due to worsening shortness of breath came to the ER. In the ER, patient was worked up which revealed WBC to be elevated and patient was given antibiotics and also DuoNebs breathing treatment and the hospitalist team was called to admit patient. PAST MEDICAL HISTORY: COPD on home oxygen 2 to 2.5 L, also hypertension, type 2 diabetes, hyperlipidemia, CAD status post [place] and CABG. PAST SURGICAL HISTORY: CABG, cholecystectomy, hysterectomy, tonsillectomy and a right eye prosthesis implanted following a right eye injury. SOCIAL HISTORY: Patient describes smoking history of like 40 pack-years. She currently vapes but she has cut down on her smoking. She denies any alcohol use. FAMILY HISTORY: Her mother had history of hypertension, diabetes and CVA. Her father had history of hypertension, lung and brain cancer. ALLERGIES: No known drug allergies. HOME MEDICATIONS: Patient's home medications include atorvastatin 80 mg q.daily, lisinopril 5 mg q.daily, pantoprazole 40 mg q.daily, albuterol inhaler, aspirin 1 tablet q.daily, Trelegy inhaler, gabapentin, Mucinex, metformin, metoprolol succinate, pentoxifylline, and risedronate, Advair inhaler and also prednisone 1 mg q.daily. REVIEW OF SYSTEMS: Patient describes weakness. Otherwise, 10-point review of systems is negative except as stated in the HPI. PHYSICAL EXAMINATION: VITALS: Blood pressure 107/78, temperature is 98.1, respiratory is 29, pulse rate is 139. GENERAL: She is an elderly female in no acute respiratory distress on 4 L oxygen taking shallow breaths and with occasional lip smacking noted. HEENT: Dry oral mucosa. Not pale, anicteric. acyanosed CARDIOVASCULAR: S1, S2 heard. No murmurs, rubs or gallop. Tachycardic heart rate noted. RESPIRATORY: Fair entry bilaterally. Patient's air movement is just fair. Occasional wheezes heard. No crackles. No crepitations noted. ABDOMEN: Bowel sounds normoactive. No organomegaly noted. EXTREMITY: No bilateral pedal edema noted. NEUROLOGY: Alert, oriented X 3. No significant neurologic abnormality noted. SKIN: No significant skin changes noted. LABORATORIES: WBC was elevated Hemoglobin 15.2. MCV 92.8. PCO2 of 23. PO2 of 164. CMP: Sodium 135, potassium 4.4, chloride 92, bicarbonate 30, anion gap of 13, BUN 10, creatinine 0.6, glucose is 144. Magnesium 2.2. LFTs are essentially normal. Troponin T is 15. ProBNP is mildly elevated Lactate is 2.1. Urinalysis: Specific gravity 1.01, protein trace, ketones and glucose negative, nitrite negative, leukocyte esterase negative, bacteria negative. IMAGING: X-ray: I reviewed the x-ray. It shows normal size heart with CABG scar. No acute pulmonary infiltrate noted. Radiology report says mild interstitial pulmonary edema with COPD. EKG shows sinus tachycardia, right atrial enlargement and no significant ST-T changes noted. On review of the EKG, it shows atrial fibrillating waves noted. However, R -R interval are constant. The fibrillating p waves has undulating baseline and as such unclear if this is due to patient shaking. ASSESSMENT: This is a 59-year-old female with history of chronic obstructive pulmonary disease, hypertension, coronary artery disease status post coronary artery bypass graft, who presents with worsening shortness of breath. Patient requires 2 to 2.5 L of oxygen at home but is now requiring 4 L. Patient describes baseline PND and 2-pillow orthopnea that remains similar. Describes cough which is productive of sputum which has increased in quantity and sputum is purulent as compared to patient's baseline. ACUTE DIAGNOSIS: 1. Chronic obstructive pulmonary disease exacerbation. 2. Acute hypoxic respiratory failure. CHRONIC DIAGNOSIS: 1. Coronary artery disease status post coronary artery bypass graft. 2. Hypertension. 3. Diabetes. 4. Hyperlipidemia. PLAN: - For COPD exacerbation,we will start patient on IV methylprednisolone 60 mg b.i.d., DuoNeb inhalers and incentive spirometry, symptomatic treatment with guaifenesin and Tessalon Perles to help with the cough. We will also start patient on antibiotics for COPD treatment with IV ceftriaxone and azithromycin. Suspect patient's leukocytosis may be related to patient's home prednisone. However, given severe COPD requiring oxygen would treat with COPD antibiotics as well and we will follow up with sputum culture and blood culture. We will also check patient for flu test as well to rule out acute influenza infection causing the COPD exacerbation. - for acute hypoxic respiratory failure patient describes features suggestive of heart failure given 2-pillow orthopnea and PND although patient has no pedal edema noted on examination. Patient's proBNP is mildly elevated. Last echo was in 2018 which showed LVEF 50%. We will do a 2-D echo to rule out any cardiac component to patient's acute hypoxic respiratory failure. Expect improvement with oxygenation with COPD treatment and we will adjust treatment if patient's echo suggests a component of heart failure. - For hypertension, patient's blood pressure is borderline on the low side. We will hold off on patient's home lisinopril. We will continue patient's metoprolol. - Diabetes mellitus, we will put patient on sliding scale insulin, diabetic diet and adjust insulin as needed. Suspect patient's blood glucose will go up as we are starting patient on steroids. - Hyperlipidemia, we will continue home atorvastatin dose, - CAD status post CABG we will continue home aspirin and statin dose. DVT prophylaxis, Lovenox. CODE STATUS: Full code. DISPOSITION: We will admit patient to the medical floor inpatient. We will discharge when medically stable. [facility]
[2019-12-13] MEDS: DUONEB (A & A) INH SCH ×7 (00:13→23:49)
[2019-12-13] MEDS: MUCOMYST 20% INH SCH ×3 (03:52→19:39)
[2019-12-13 04:46] LABS: ALLEN TEST YES; BE 6.7 mmoll (-3.0-3.0); BLOOD TYPE ARTERIAL; HCO3-(ACT) 30.1 mmoll (20.0-26.0); METHB 0.9 % (0.0-1.5); O2(CT) 16.7 mL/dL (15.0-23.0); O2HB 96.7 % (95.0-99.0); PO2(98.6) 111 mmHg (60-100); SAMPLE BLOOD; SAO2 99.3 % (95.0-100.0); THB 12.2 g/dL (11.5-17.4); pH(98.6) 7.36 (7.35-7.45)
[2019-12-13 04:47] LABS: MODALITY CANNULA; PCO2(98.6) 60 mmHg (35-45)
[2019-12-13] MEDS: HUMULIN R SUBQ SCH ×3 (06:14→20:40)
[2019-12-13 07:52] LABS: BASO# 0.02 X1000 (0.0-0.2); BASO% 0.2 % (0.0-0.8); HEMATOCRIT 39.5 % (37.0-47.0); IMM GRAN# 0.02 X1000 (0.0-0.04); IMM GRAN% 0.2 % (0.0-0.5); LYMPH# 0.63 X1000 (1.2-3.4); LYMPH% 5.3 % (20.5-51.1); MCH 30.9 PG (27-31); MCHC 32.9 g/dL (33-37); MCV 93.8 FL (81-99); MONO# 0.53 X1000 (0.11-0.59); MONO% 4.5 % (1.7-9.3); MPV 8.7 FL (7.4-10.4); NEUT# 10.67 X1000 (1.4-6.5); NEUT% 89.8 % (42.2-75.2); PLT 297 X1000 (130-400); RBC 4.21 XMIL (4.2-5.4); RDW 17.7 % (11.5-14.5); WBC 11.87 X1000 (4.8-10.8)
[2019-12-13 07:58] LABS: AGAP 12; BUN 13 mg/dL (8-22); CALCIUM 9.6 mg/dL (8.8-10.2); CHLORIDE 97 mmol/L (98-107); COSMO 280; CREATININE 0.6 mg/dL (0.5-0.9); ESTIMATED GFR > 60; GLUCOSE 100 mg/dL (70-104); POTASSIUM 4.1 mmol/L (3.5-5.1); SODIUM 140 mmol/L (136-145); TCO2 31 mmol/L (25-35)
[2019-12-13 08:21] LABS: ANISOCYTOSIS 1+; HYPOCHROM 1+; LARGE PLATELETS OCCASIONAL; LYMPHS 6 % (21-51); MONO 5 % (1-9); POIKILOCYTOSIS 1+; SEGS 89 % (42-75)
[2019-12-13] MEDS: SOLU-MEDROL IV SCH ×2 (08:31→20:34)
[2019-12-13] MEDS: ASPIRIN EC PO SCH (08:31)
[2019-12-13] MEDS: LIPITOR PO SCH (08:31)
[2019-12-13] MEDS: TOPROL XL PO SCH (08:31)
[2019-12-13] MEDS: TRENTAL PO SCH ×3 (08:32→18:03)
[2019-12-13] MEDS: PRILOSEC PO SCH (08:32)
[2019-12-13] MEDS: MUCINEX PO SCH ×2 (08:32→20:39)
[2019-12-13] MEDS: TESSALON PO SCH ×3 (08:32→18:03)
--- NOTE | 2019-12-13 10:14 | EKG Report ---
Test Performed on : 12/13/2019 06:33:56 AM Test Reason : afib Blood Pressure : / mmHG Vent. Rate : 090 BPM Atrial Rate : 090 BPM P-R Int : 112 ms QRS Dur : 076 ms QT Int : 346 ms P-R-T Axes : 082 080 086 degrees QTc Int : 423 ms Sinus rhythm. with marked sinus arrhythmia. Minimal voltage criteria for LVH, may be normal variant Anterior infarct (cited on or before 22-APR-2016) Cannot rule out Inferior infarct Abnormal ECG When compared with ECG of 11-DEC-2019 18:36, (Unconfirmed) No significant change was found Confirmed by Cali Yoo MD ([id number]) on 12/13/2019 5:03:21 PM
--- NOTE | 2019-12-13 13:16 | ECHO REPORT ---
ORDER DATE: 12/12/2019 MEASUREMENTS: Septal thickness 0.9, left ventricular internal diameter in diastole 3.7, posterior wall thickness 0.9, left ventricular internal diameter in systole 2.5, aortic root 2.4, left atrium 2.8. SUMMARY: 1. Fair quality study. 2. Aortic valve is trileaflet and opens normally on 2-dimensional images. The peak gradient across the aortic valve is 11 mmHg, with a mean gradient of 5 mmHg. Mitral, tricuspid, and pulmonic valves are without evidence of structural abnormality, with very mild tricuspid regurgitation. The aortic root is normal in size. 3. Normal left ventricular dimensions suggested. The estimated left ventricular ejection fraction is approximately 45%. Regional wall motion analysis is somewhat challenging. There does appear to be severe [id number] of the [id number] septum and very apex, left ventricle. Underlying regional coronary disease is suggested. Doppler suggests grade 1 left ventricular diastolic dysfunction. The left atrium, right atrium, and right ventricle are normal in size with grossly preserved right ventricular systolic function. 4. No pericardial effusion. 5. Appearance of the inferior vena cava suggests normal central venous pressure. cc: Tim Wadsworth MD
[2019-12-13] MEDS: ROCEPHIN 1 GM in NS 50 ML IV SCH (20:35)
[2019-12-13] MEDS: LOVENOX SUBQ SCH (20:37)
[2019-12-13] MEDS: NEURONTIN PO SCH (20:39)
--- NOTE | 2019-12-13 20:57 | PROGRESS NOTE ---
DATE: 12/13/2019 SUBJECTIVE: The patient is resting comfortably in bed. She states she feels about the same. OBJECTIVE: Vital Signs: Temperature 97.5 degrees, blood pressure 113/69, heart rate 98, respirations 15, O2 saturation 97% on 4 L nasal cannula. General: This is a chronically ill- appearing elderly female lying in bed in no acute distress. Heart: S1, S2 normal. Regular rate and rhythm. Lungs: Poor air entry bilaterally. No wheezing, no rales. Abdomen: Positive bowel sounds. Soft, nontender, nondistended. Extremities: No edema, no cyanosis. Neuro: The patient is alert and oriented x3. LABS: White blood cell count 11, hemoglobin 13, hematocrit 39, platelets 297,000. Sodium 140, potassium 4.1, chloride 97, CO2 31, BUN 13, creatinine 0.6, glucose 100, calcium 9.6. ASSESSMENT AND PLAN: 1. Acute on chronic hypoxemic respiratory failure. Continue to treat the underlying COPD exacerbation. 2. Acute chronic obstructive pulmonary disease exacerbation. Continue on IV steroids, bronchodilator therapy and antibiotics. 3. Severe emphysema. Aware. Will ask the process improvement consultant to see the patient tomorrow. 4. Coronary artery disease with a history of myocardial infarction status post coronary artery bypass graft in 2005. Aware. Continue on aspirin, Toprol-XL and Lipitor. The patient's echocardiogram done during this hospitalization reveals an ejection fraction of 45%. The patient reports that she has not seen a credit processor in several years. 5. Tobacco dependence. The patient has been counseled about smoking cessation. 6. Hypertension. Controlled. 7. Gastroesophageal reflux disease. Continue on Prilosec. 8. Deep vein thrombosis prophylaxis. Continue on Lovenox. cc: Mylene Weathers MD
[2019-12-13] MEDS: ZITHROMAX 500 MG/NS 500 MG/250 ML IVPB IV SCH (21:19)
[2019-12-14] MEDS: DUONEB (A & A) INH SCH ×4 (03:47→15:26)
[2019-12-14] MEDS: HUMULIN R SUBQ SCH ×3 (06:09→16:49)
--- NOTE | 2019-12-14 07:26 | Diag Imaging Result Doc PS360 ---
EXAM: CHEST-2 VIEWS HISTORY: copd TECHNIQUE: Two views COMPARISON: 12/11/2019 FINDINGS: The lungs are hyperexpanded. The vessels are small. There are sternal wires. No cardiomegaly. No infiltrates. No pleural effusions. There is a calcified granuloma in the right lower lobe. IMPRESSION: Severe emphysema Electronically signed by Herson Medina 12/14/2019 7:24 AM
[2019-12-14 07:29] LABS: HEMOGLOBIN 13.2 g/dL (12.0-16.0); MCH 29.5 PG (27-31); MCHC 31.4 g/dL (33-37); RBC 4.47 XMIL (4.2-5.4); RDW 17.5 % (11.5-14.5); WBC 12.73 X1000 (4.8-10.8)
[2019-12-14 07:39] LABS: AGAP 10; BUN 15 mg/dL (8-22); CALCIUM 9.3 mg/dL (8.8-10.2); CHLORIDE 98 mmol/L (98-107); COSMO 280; CREATININE 0.5 mg/dL (0.5-0.9); ESTIMATED GFR > 60; GLUCOSE 95 mg/dL (70-104); POTASSIUM 4.3 mmol/L (3.5-5.1); SODIUM 140 mmol/L (136-145); TCO2 32 mmol/L (25-35)
[2019-12-14] MEDS: PRILOSEC PO SCH (08:58)
[2019-12-14] MEDS: ASPIRIN EC PO SCH (08:58)
[2019-12-14] MEDS: LIPITOR PO SCH (08:58)
[2019-12-14] MEDS: TOPROL XL PO SCH (08:58)
[2019-12-14] MEDS: MUCINEX PO SCH (08:58)
[2019-12-14] MEDS: SOLU-MEDROL IV SCH (08:58)
[2019-12-14] MEDS: TESSALON PO SCH ×3 (08:59→16:48)
[2019-12-14] MEDS: TRENTAL PO SCH ×3 (08:59→16:48)
--- NOTE | 2019-12-14 10:20 | EKG Report ---
Test Performed on : 12/11/2019 6:36:47 PM Test Reason : ED. NO order in [place] Blood Pressure : / mmHG Vent. Rate : 099 BPM Atrial Rate : 099 BPM P-R Int : 110 ms QRS Dur : 072 ms QT Int : 328 ms P-R-T Axes : 082 085 077 degrees QTc Int : 420 ms Sinus rhythm. with short OH Anterior infarct (cited on or before 22-APR-2016) Abnormal ECG When compared with ECG of 11-DEC-2019 15:18, (Unconfirmed) Questionable change in initial forces of Lateral leads Unconfirmed Result
[2019-12-14 10:36] LABS: BLOOD TYPE ARTERIAL; HCO3-(ACT) 31.1 mmoll (20.0-26.0); O2(CT) 17.4 mL/dL (15.0-23.0); PCO2(98.6) 45 mmHg (35-45); PO2(98.6) 62 mmHg (60-100); SAMPLE BLOOD; SAO2 95.7 % (95.0-100.0); THB 13.3 g/dL (11.5-17.4); pH(98.6) 7.47 (7.35-7.45)
[2019-12-14 10:37] LABS: MODALITY CANNULA
[2019-12-14 10:38] LABS: ALLEN TEST YES
[2019-12-14] MEDS: MUCOMYST 20% INH SCH (11:35)
--- NOTE | 2019-12-14 12:09 | CARDIOLOGY CONSULTATION ---
DATE: 12/14/2019 CHIEF COMPLAINT: Shortness of breath. HISTORY: Ms. Rogers is a 59-year-old female who presented to the hospital on 12/11/2019 with complaints of increasing dyspnea that had been going on for several days, associated with productive cough. The patient reported having yellow sputum and on initial assessment in the ER, they did a chest x-ray that showed COPD with mild interstitial pulmonary edema. EKG showed sinus rhythm with evidence of an inferior scar as well as an anterior scar. There is a rightward axis. Blood work showed a proBNP of 654 pg/mL, which is about 2-1/2 times baseline. High sensitivity troponins were checked twice, they were negative. BUN and creatinine were normal. The patient has been given a course of antibiotics, ceftriaxone, azithromycin, steroids, and she has gradually improved. The patient denies having any chest pain. She acknowledges that this appears to be a case of a exacerbation of her underlying COPD. PAST MEDICAL HISTORY: Significant for severe coronary heart disease. In 2005, she suffered a myocardial infarction. Eventually, she underwent invasive cardiac evaluation. They found 3 vessel coronary disease, was referred for bypass. She has diabetes mellitus type 2. She has advanced COPD on home ox oxygen. She has dyslipidemia. PAST SURGICAL HISTORY: She had coronary bypass surgery at [facility] in 2005, vein graft to LAD and OM, and a mammary graft to diagonal. She has had tonsillectomy, salivary gland removed. Appendectomy, right eye surgery, hysterectomy. SOCIAL HISTORY: She is a . She is on disability and lives at home. She has two daughters, one lives in [place], one lives next door to her. She had been a heavy smoker in the past. Currently, she smokes a few cigarettes. FAMILY HISTORY: Hypertension, diabetes in father and mother. ALLERGIES: Negative. HOME MEDICATIONS: At the time of this admission included 1. Albuterol inhaler every 4 to 6 hours. 2. Aspirin 1 daily. 3. Atorvastatin 80 mg daily. 4. Zithromax as directed. 5. Advair 1 puff twice a day. 6. Trelegy Ellipta daily. 7. Gabapentin 1 capsule at bedtime. 8. Mucinex 1 tablet twice a day. 9. Hydrocodone every 4 hours. 10. Levaquin 500 daily. 11. Lisinopril 5 mg daily. 12. Metformin 1 tablet daily. 13. Metoprolol 1 tablet daily. 14. Protonix 40 mg daily. 15. Pentoxifylline, Trental 1 tablet 3 times a day. 16. Prednisone 1 mg daily. 17. Actonel as directed. REVIEW OF SYSTEMS: She is chronically short of breath. She is very underweight. Her body mass index is 14.9. Significant muscle wasting. Chronically fatigued and tired. No angina pectoris. PHYSICAL EXAMINATION: Vital signs: Blood pressure 127/81, temperature 97.9 degrees, pulse 80, respirations 18. General: She is awake, alert, oriented, no distress. HEENT: Unremarkable. She appears to be emaciated, chronically ill. Chest: Diffusely diminished breath sounds with hyper-resonance to percussion and markedly diminished breath sounds bilaterally. Heart: Heart sounds are regular rhythm. I do not hear a gallop or murmur. Abdomen: Soft, nontender. Extremities: Showed markedly diminished pulses. No edema. She has significant muscle wasting. She has some spider veins in the lower extremities. Neurological: She follows commands. Moves all 4 extremities. LABORATORY DATA: Her additional blood work: White cell count is 12,730, hemoglobin 13.2, hematocrit 42%. On admission, the white cell count was 17,510. Her blood gases showed yesterday a pH of 7.36, pCO2 60, on FiO2 of 0.32. Today, her blood gases on FiO2 0.36 show pH 7.47, pO2 62, pCO2 is 45. IMAGING: A 2D echocardiogram that was done at this time shows ejection fraction of 45% with hypokinesis to akinesis of the mid to apical septum and apex. That is similar to a prior echocardiogram from a year to 2 years ago. A pulmonary arteriogram that was done on 12/11/2019 showed no pulmonary emboli, severe emphysema, right sided pleural thickening and fibrosis, evidence of prior granulomatous infection. IMPRESSION: 1. Patient who has severe chronic obstructive pulmonary disease, advanced, on home oxygen. 2. History of prior coronary bypass surgery, severe coronary heart disease with a stable pattern of chest symptoms. 3. Chronic obstructive pulmonary disease exacerbation/ acute Bronchitis/purulent bronchitis. 4. History of diabetes. 5. History of dyslipidemia. RECOMMENDATION: Cardiac-cox, the patient appears to be stable. I would not suggest to do any stress test at this time. I will make sure that she follows up with Dr. Paige, who used to be her upsetter helper in the past, in 1-2 months after her respiratory symptoms have settled down. Thank you for asking us to participate in her evaluation. cc: Mau Hogan MD MTDD
[2019-12-14 15:29] VITALS: BP 116/63
[2019-12-18] MEDS ORDERED: ACTONEL PO SCH (20:45)
--- NOTE | 2019-12-20 18:05 | DISCHARGE SUMMARY ---
ADMISSION DATE: 12/11/2019 DISCHARGE DATE: 12/14/2019 FINAL DISCHARGE DIAGNOSES: 1. Acute on chronic hypoxemic respiratory failure. 2. Acute chronic obstructive pulmonary disease exacerbation. 3. Severe emphysema. 4. Coronary artery disease status post coronary artery bypass graft with a history of myocardial infarction. 5. Tobacco dependence. 6. Hypertension. 7. Gastroesophageal reflux disease. HOSPITAL COURSE: Ms. Rogers is a 59-year-old female with a history of severe emphysema, COPD, and chronic respiratory failure on supplemental oxygen, who presented to the ER with shortness of breath and a dry cough. On admission, a chest x-ray was done that was noted to be unremarkable. The patient was admitted to the Hospitalist service with a diagnosis of an acute COPD exacerbation, as well as acute on chronic hypoxemic respiratory failure. The patient was started on IV steroids, bronchodilator therapy, and supplemental oxygen, as well as antibiotics. Slowly over the course of the hospitalization the patient's respiratory status improved. The patient also had an echocardiogram done that revealed an ejection fraction of 45%. The patient was seen by the sewing teacher during this hospital stay, who did not recommend further cardiac testing at this time. The patient continued to improve clinically and was cleared for discharge home on December 14, 2019. DISCHARGE MEDICATIONS: 1. Augmentin 500/125 one tablet oral twice a day. 2. Prednisone taper, use as directed. 3. Mucinex 600 mg oral every 12 hours. 4. DuoNeb 3 mL inhaled every 4 hours p.r.n. for shortness of breath. 5. Lipitor 80 mg oral daily. 6. Lisinopril 5 mg oral daily. 7. Protonix 40 mg oral daily. 8. Aspirin 325 mg oral daily. 9. Gabapentin 100 mg oral at bedtime. 10. Metformin 1 tablet oral daily. 11. Toprol-XL 50 mg oral daily. 12. Trental 400 mg oral 3 times a day. 13. Actonel, use as directed. 14. Orland 1 tablet oral every 4 hours p.r.n. for pain. 15. ProAir inhaler 1 inhalation every 4 hours p.r.n. for shortness of breath. 16. Advair 100/50 one puff inhaled twice a day. DISCHARGE DIET: An 1800 ADA diet. ACTIVITY: As tolerated. FOLLOW UP INSTRUCTIONS: 1. The patient will need to follow up with Dr. Seng Garrido in 1 week. 2. The patient will need to follow up with Dr. Mir in 2 to 3 weeks. 3. The patient will need to follow up with Dr. Paige in 3 to 4 weeks. cc: Mylene Weathers MD
== END 2019-12-14 17:23 | disposition home or self-care (01) ==
LOC: SUPCPDRO → ED 14:57 → 3N 21:04 → SUATTDRO 21:04 → INTOOBSV 21:04
PROVIDERS: ATTEND Internal Medicine